=== PATIENT | male | born 1955 | race African-American/Black ===

== ENCOUNTER 2024-12-11 11:56 | Outpatient (CLI) | payer MEDICARE, MEDICAID, SELFPAY ==
--- OUTSIDE RECORDS SUMMARY | 2024-12-11 12:25 | XMS_ITS | Encounter Summary ---
Author Organization [facility] Address [address] [place] [address] Phone Care Team Providers Care Analyst Competitive Intelligence Name Role Phone Luisana Carlos Maureen PAC Unavailable Vicki Riggins PAC Primary Care Provider + Encounter Details Date Type Department Care Team (Late st Contact Info) Description 11/25/2024 Telephone [facility] [address] [place] [address] Triston Storey, FILM PAINTER, COMMUNITY RELATIONS DIRECTOR [address] [address] Social History Tobacco Use Types Packs/Day Years Used Date Smoking Tobacco: Former Cigarettes 0.3 1 1 05/13/1995 - 03/13/1997 Smokeless Tobacco: Never Alcohol Use Standard Drinks/Week Comments No 0 (1 standard drink = 0.6 oz pur e alcohol) PHQ-2 Answer Date Recorded Total Score - Questions 1-9 0 01/2025 Sex and Gender Information Value Date Recorded Sex Assigned at Male 12/30/2016 3:45 PM CDT Legal Sex Male 3:17 AM EXECUTIVE DIRECTOR Gender Identity Male 12/30/2016 3:45 PM CDT Sexual Orientation Straight 12/30/2016 3: 45 PM CDT documented as of this encounter Miscellaneous Notes * Telephone Encounter - Ani Espitia RN - 11/25/2024 9:37 AM CDT S: Received fax for pre-surgical eval from [facility] B: JARROD 09/10/24 3. Erectile dysfunction, unspecified erectile dysfunction type Quadmix 30 units with good effect Expensive and does not like injecting Asking about IPP. Discussed, including risks, things some do not like about it Referral made to Dr Soto [facility] - EXTERNAL UROLOGY REFERRAL; Future A: Presurgical eval form for Tito to fill out and sign R: Form placed in Tito's folder to review and signature Will need to be return faxed to [phone] documented in this encounter Plan of Treatment Upcoming Encounters Date Type Department Care Team (Late st Contact Info) Description 03/25/2025 11:30 AM EXECUTIVE DIRECTOR Office Visit [facility] [address] [place] [address] Triston Storey, FILM PAINTER, COMMUNITY RELATIONS DIRECTOR [address] [address] 03/25/2025 3:00 PM EXECUTIVE DIRECTOR Office Visit [facility] [address] [place] [phone] Devyn Cardenas, FILM PAINTER, CHICKEN STUFFER [address] [place] [address] Discharge Disposition: Discharged to home or Selfcare 04/15/2025 9:00 AM EXECUTIVE DIRECTOR Office Visit [facility] [address] [place] [address] Vicki Riggins PAC [address] [place] [address] documented as of this encounter Visit Diagnoses Not on filedocumented in this encounter Additional Health Concerns Assessment Noted Time PHQ-9 Depression Total Score: 0 10/15/19 8:00 AM CDT documented as of this encounter Care Teams Analyst Competitive Intelligence Relationship Specialty Start Date End Date Vicki Riggins PAC [address] [place] [address] PCP - General Physician Title I Assistant 07/06/22 Luisana Carlos, [facility] [address] [place] [address] Physician Title I Assistant Gastroenterology 10/08/19 documented as of this encounter
--- OUTSIDE RECORDS SUMMARY | 2024-12-11 12:25 | XMS_ITS ---
Author Organization [facility] Address [address] [place] [address] Phone Care Team Providers Care Viticulture Teacher Name Role Phone PoLuisana gonzalez Zara PAC Unavailable Vicki Riggins PAC Primary Care Provider + Mike Chronic Condition Monitoring Status:Enrolled (Active) Start date:04/19/2023 Enrollment date:04/20/2023 Current support & services provided:Diabetes Management, Hypertension Management Related social drivers of health:Intimate Partner Violence, Social Connections, Alcohol Use, Tobacco Use, Financial Resource Strain,Depression, Stress, Physical Activity, Food Insecurity, Transportation Needs, Housing Stability, Utilities Continued Care and Services Coordination
--- OUTSIDE RECORDS SUMMARY | 2024-12-11 12:25 | XMS_ITS | Encounter Summary ---
Author Organization [facility] Address [address] [place] [address] Phone Care Team Providers Care Fire Chief Deputy Name Role Phone Luisana Carlos Maureen PAC Unavailable Vicki Riggins PAC Primary Care Provider + Encounter Details Date Type Department Care Team (Late st Contact Info) Description 04/07/2023 Telephone [facility] [address] [place] [address] Triston Storey, SUPPLY AND DISTRIBUTION MANAGER, DEVELOPMENTAL MATHEMATICS INSTRUCTOR [address] [address] Social History Tobacco Use Types Packs/Day Years Used Date Smoking Tobacco: Former Cigarettes 0.3 1 1 05/13/1995 - 03/13/1997 Smokeless Tobacco: Never Alcohol Use Standard Drinks/Week Comments No 0 (1 standard drink = 0.6 oz pur e alcohol) PHQ-2 Answer Date Recorded Total Score - Questions 1-9 0 05/2022 Sex and Gender Information Value Date Recorded Sex Assigned at Male 12/30/2016 3:45 PM CDT Legal Sex Male 3:17 AM LOAN SPECIALIST Gender Identity Male 12/30/2016 3:45 PM CDT Sexual Orientation Straight 12/30/2016 3: 45 PM CDT COVID-19 Exposure Response Date Recorded In the last 10 days, have yo u been in contact with someone who was confirmed or suspected to have Coronavirus/COVID-19? No / Unsure 03/08/2023 10:14 AM CDT documented as of this encounter Miscellaneous Notes * Telephone Encounter - Maribel Ricardo - 05/17/2023 9:46 AM CST No PA required for Terazosin 2 mg caps SPECIALIST * Telephone Encounter - Maribel Ricardo - 04/07/2023 3:44 PM CST PA for Terazosin 2 mg caps has been initiated through [facility] Sánchez: [id number] SPECIALIST documented in this encounter Plan of Treatment Upcoming Encounters Date Type Department Care Team (Late st Contact Info) Description 03/25/2025 11:30 AM LOAN SPECIALIST Office Visit [facility] [address] [place] [address] Triston Storey, SUPPLY AND DISTRIBUTION MANAGER, DEVELOPMENTAL MATHEMATICS INSTRUCTOR [address] [address] 03/25/2025 3:00 PM LOAN SPECIALIST Office Visit [facility] [address] [place] [address] Devyn Cardenas, SUPPLY AND DISTRIBUTION MANAGER, OIL PIPELINE DISPATCHER [address] [place] [address] Discharge Disposition: Discharged to home or Selfcare 04/15/2025 9:00 AM LOAN SPECIALIST Office Visit [facility] [address] [place] [phone] Vicki Riggins, [facility] [address] [place] [address] documented as of this encounter Visit Diagnoses Not on filedocumented in this encounter Additional Health Concerns Assessment Noted Time PHQ-9 Depression Total Score: 0 03/08/20 23 10:00 AM CDT documented as of this encounter Care Teams Fire Chief Deputy Relationship Specialty Start Date End Date Vicki Riggins, PAC [address] [place] [phone] PCP - General Physician Director Of Mechanical Engineering 07/06/22 Luisana Carlos, KRISTOPHER [address] [place] [address] Physician Director Of Mechanical Engineering Gastroenterology 10/08/19 documented as of this encounter
--- OUTSIDE RECORDS SUMMARY | 2024-12-11 12:25 | XMS_ITS | Encounter Summary ---
Author Organization [facility] Address [address] [place] [address] Phone Care Team Providers Care Children'S Lunchroom Supervisor Name Role Phone Luisana Carlos PAC Unavailable [phone] Vicki Riggins PAC Primary Care Provider + Encounter Details Date Type Department Care Team (Late st Contact Info) Description 10/14/2024 Results Follow-Up [facility] [address] [place] [address] Vicki Riggins, PAC [address] [place] [address] LIPID PANEL, THYROID STIMULATING HORMONE (TSH), HEMOGLOBIN A1C W/ ESTIMATED GLUCOSE Social History Tobacco Use Types Packs/Day Years [...] PM CDT Legal Sex Male 3:17 AM REGISTERED NURSE RENAL Gender Identity Male 12/30/2016 3:45 PM CDT Sexual Orientation Straight 12/30/2016 3: 45 PM CDT documented as of this encounter Functional Status * Question Answer Date of Assessment Author Little interest or pleasure in doing things Not at all 10/14/2024 8:00 AM CDFadia Haywood CM A Feeling down, depressed, or hopeless Not at all 10/14/2024 8:00 AM CDT Fadia Sow CM A * Over the past 2 weeks, how often have you been bothered by any of the following problems? Question Answer Date of Assessment Author Patient Health Questionnaire-2 Score 0 01/2025 8:00 AM CDFadia Haywood CMA * Over the last 2 weeks, how often have you been bothered by any of the following problems? Question Answer Date of Assessment Author Feeling nervous, anxious, or on edge 0 10/14/2024 8:00 AM CDT Fadia Sow CM A Not being able to stop or co ntrol worrying 0 10/14/2024 8:00 AM CDT Fadia Swo CM A Worrying too much about diff erent things 0 10/14/2024 8:00 AM CDFadia Haywood CM A Trouble relaxing 0 10/14/2024 8:00 AM CDFadia Haywood CMA Being so restless that it is hard to sit still 0 10/14/2024 8:00 AM CDFadia Haywood CM A Becoming easily annoyed or irritable 0 10/14/2024 8:00 AM CDT Fadia Sow CM A Feeling afraid as if somethi ng awful might happen 0 10/14/2024 8:00 AM Fadia Espinoza CM A MANUEL-7 Total Score 0 10/14/2024 8:00 AM CDFadia Haywood CMA documented as of this encounter Plan of Treatment Upcoming Encounters Date Type Department Care Team (Late st Contact Info) Description 03/25/2025 11:30 AM REGISTERED NURSE RENAL Office Visit [facility] [address] [place] [address] Triston Storey, PRACTICE PERFORMANCE MANAGER, BUSINESS SERVICES SALES AGENT [address] [address] 03/25/2025 3:00 PM REGISTERED NURSE RENAL Office Visit [facility] [address] [place] [address] Devyn Cardenas, PRACTICE PERFORMANCE MANAGER, LEATHER BELT SHAPER [address] [place] [address] Discharge Disposition: Discharged to home or Selfcare 04/15/2025 9:00 AM REGISTERED NURSE RENAL Office Visit [facility] [address] [place] [address] Vicki Riggins, KRISTOPHER [address] [place] [address] documented as of this encounter Visit Diagnoses Not on filedocumented in this encounter Additional Health Concerns Assessment Noted Time PHQ-9 Depression Total Score: 0 10/15/19 25 8:00 AM CDT documented as of this encounter Care Teams Children'S Lunchroom Supervisor Relationship Specialty Start Date End Date Vicki Riggins PAC [address] [place] [address] PCP - General Physician Valving Machine Operator 07/06/22 Luisana Carlos PAC [address] [place], [place] [id number] Physician Valving Machine Operator Gastroenterology 10/08/19 documented as of this encounter
--- OUTSIDE RECORDS SUMMARY | 2024-12-11 12:25 | XMS_ITS | Clinical Summary ---
Author Organization [facility] Address [address] [place] [address] Phone Care Team Providers Care Juke Box Servicer Name Role Phone Luisana Carlos PAC Unavailable Vicki Riggins PAC Primary Care Provider + Allergies Active Allergy Reactions Criticality Noted Date Comments Other Other (see Comments) Wfrgnxe-TLZ-VGR reductase inhibitors. Reaction: rhabdomyositis - Patients Denies Unaware of this Medications Glucose Blood StripIndications :Type 2 diabetes mellitus without complication, without long-term current use of insulin 1 Strip by Does not apply route daily. 100 Strip 3 10/19/19 17 Active naproxen (NAPROSYN) 500 MG TabletIndication s:Low back pain of over 3 months duration Take 1 Tablet by mouth 2 times daily (with meals). 60 Tablet 5 01/09/20 21 Active Additional Information Patient not taking.Reported on 10/14/2024 latanoprost (XALATAN) 0.005 % Solution 02/12/20 23 Active COMPOUNDED MEDICATION Quad Mix for ICI Papaverine 30 mg/mL Phentolamine 4 mg/mL Prostaglandin E 40 mcg/mL Atropine 160 mcg/mL Start with 10 units (0.1 mL) daily as needed. Can increase by 10 units (0.1 mL) each dose to a maximum of 100 units (1mL). 5 mL 06/04/19 25 Active Insulin Syringe-Needle U-100 (INSULIN SYRINGE 1CC/31G) 31G X 09/20 1 ML Misc For penile injections daily as needed 100 Each 1 06/05/19 25 Active testosterone enanthate 200 MG/ML SolutionIndicati ons:Primary male hypogonadism 0.5 mL by Intramuscular route once a week. 5 mL 3 09/11/19 25 Active terazosin (HYTRIN) 5 MG Capsule Take 1 Capsule by mouth nightly. 90 Capsule 3 09/11/19 25 Active SYRINGE-NEEDLE, DISP, 3 ML (BD Luer-Lock Syringe) 18G X 1-1/2 3 ML Misc 1 Each by Does not apply route once a week. 12 Each 2 09/11/19 25 Active NEEDLE, DISP, 25 G (BD Disp [place]) 25G X 5/8 Misc 1 Each by Does not apply route once a week. 12 Each 3 09/11/19 25 Active lisinopril (PRINIVIL, ZESTRIL) 20 MG TabletIndication s:Primary hypertension Take 1 Tablet by mouth daily. 90 Tablet 1 10/15/19 25 Active metFORMIN (GLUCOPHAGE) 500 MG TabletIndication s:Type 2 diabetes mellitus with hyperglycemia, without long-term current use of insulin (HCC) Take 2 Tablets by mouth 2 times daily (with meals). 360 Tablet 1 10/15/19 25 Active Active Problems Problem Noted Date Diagnosed Date Herpes simplex virus (HSV) infection 03/08/2023 Type 2 diabetes mellitus 02/28/2018 Screen for colon cancer 03/14/2017 Overview (03/15/2017): Screen for colon cancer; Negative family history for colon cancer in first degree relatives under age 60 years. 03-15-17; 61 year old man for initial screening colonoscopy; fair prep liquid resolved with irrigation, 6 mm descending colon polyp CS, hemorrhoids (pathology; ) Three to five year interval recommended (prep issues) High blood pressure 12/30/2016 Hyperlipidemia 10/25/2011 Obesity Erectile dysfunction Resolved Problems Problem Noted Date Diagnosed Date Resolved Date Hypotension 10/25/2011 06/27/2016 Rhabdomyolysis 10/25/2011 06/27/2016 Fever 10/25/2011 10/26/2011 Hyperglycemia 06/27/2016 Encounters Date Type Department Care Team Description 11/25/2024 Telephone [facility] [address] [place] [address] Triston Storey, RECORD PRESS OPERATOR, DAIRY STORE MANAGER 11/19/2024 Telephone [facility] [address] [place] [address] NurseShyann Gastro, security guard dispatcher (Error in referral needs [place]) 11/12/2024 Telephone [facility] [address] [place] [address] NurseShyann Urology, RN Colonoscopy (Screening questions completed) 10/14/2024 9:10 AM CDT [facility] [address] [place] [address] Vicki Riggins PAC Primary hypertension; Type 2 diabetes mellitus with hyperglycemia, without long-term current use of insulin (HCC) Discharge Disposition: Discharged to home or Selfcare 10/14/2024 9:00 AM CDT Office Visit [address] [address] Vicki Riggins PAC Primary hypertension (Primary Dx); Type 2 diabetes mellitus with hyperglycemia, without long-term current use of insulin (HCC); Polyp of colon, unspecified part of colon, unspecified type; BMI 37.0-37.9, adult 10/14/2024 Results Follow-Up [address] [phone] Vicki Riggins PAC LIPID PANEL, THYROID STIMULATING HORMONE (TSH), HEMOGLOBIN A1C W/ ESTIMATED GLUCOSE 10/14/2024 Travel 09/10/2024 10:00 AM CDT Office Visit [facility] [address] [place] [address] Triston Storey APRN, DAIRY STORE MANAGER Primary male hypogonadism (Primary Dx); BPH with obstruction/lower urinary tract symptoms; Erectile dysfunction, unspecified erectile dysfunction type; Nocturia Discharge Disposition: Discharged to home or Selfcare from Last 3 Months Immunizations Immunization Administration Dates Next Due COVID-19, MRNA, LNP-S, BIVAL ENT , MODERNA, 50 MCG/0.5 ML (12+) 04/28/2022 Covid-19, Mrna, Lnp-s, PF, 1 00 mcg/0.5 mL Dose (Moderna) 08/18/2020,07/17/2020 Influenza Vaccine, Quadrivalent, PF 02/06/2020 Influenza, Injectable, Quadrivalent 02/28/2018 Influenza, Quadrivalent, Adjuvanted 02/15/2023,1 06/29/2021 Influenza, high-dose, trivalent, PF 01/15/2024 Family History Medical History Relation Name Comments Hypertension Mother Relation Name Status Comments Father Alive Mother Social History Tobacco Use Types Packs/Day Years Used Date Smoking Tobacco: Former Cigarettes 0.3 1 1 05/13/1995 - 03/13/1997 Smokeless Tobacco: Never Tobacco Cessation:Counseling Given: No Alcohol Use Standard Drinks/Week Comments No 0 (1 standard drink = 0.6 oz pur e alcohol) PHQ-2 Answer Date Recorded Total Score - Questions 1-9 0 /01/2025 Sex and Gender Information Value Date Recorded Sex Assigned at Male 12/30/2016 3:45 PM CDT Legal Sex Male 3:17 AM SIZER MACHINE Gender Identity Male 12/30/2016 3:45 PM CDT Sexual Orientation Straight 12/30/2016 3: 45 PM CDT Last Filed Vital Signs Vital Sign Reading Time Taken Comments Blood Pressure 146/84 10/14/2024 8:48 AM CDT Pulse 84 10/14/2024 8:48 AM CDT Temperature 36.8 C (98.3 F) 10/14/2024 8:48 AM CDT Respiratory Rate 18 10/14/2024 8:48 AM CDT Oxygen Saturation 99% 10/14/2024 8:48 AM CDT Inhaled Oxygen Concentration - - Weight 132 kg (291 lb) 10/14/2024 8:48 AM CDT Height 188 cm (6' 2) 10/14/2024 8:48 AM CDT Body Mass Index 37.36 10/14/2024 8:48 AM CDT Plan of Treatment Upcoming Encounters Date Type Department Care Team (Late st Contact Info) Description 03/25/2025 11:30 AM SIZER MACHINE Office Visit [facility] [address] [place] [address] Triston Storey, RECORD PRESS OPERATOR, DAIRY STORE MANAGER [address] [address] 03/25/2025 3:00 PM SIZER MACHINE Office Visit [facility] [address] [place] [phone] Devyn Cardenas, RECORD PRESS OPERATOR, EDGING MACHINE FEEDER [address] [place] [address] Discharge Disposition: Discharged to home or Selfcare 04/15/2025 9:00 AM SIZER MACHINE [facility] [address] [place] [address] Vicki Riggins, [facility] [address] [place] [address] Health Maintenance Due Date Last Done Comments Diabetes: Foot Exam 1955 Hepatitis C Virus (HCV) Screening 1955 TdaP Immunization 1955 Pneumococcal Immunization (50+ years) (1 of 2 - PCV) 12/26/1975 Cologuard 2001 Zoster Immunization (1 of 2) 2006 Respiratory Syncytial Virus (RSV) Immunization (Adult) (1 - Risk 60-74 years 1-dose series) 2016 Immunochemical Fecal Occult Blood 07/21/2020 07/22/2019 AAA Screening Ultrasound 2021 SARS-COV-2 Immunization ( season) 2024 04/13/2023, 04/28/2022, 04/28/2022, Additional history exists Colonoscopy 10/20/2024 10/21/2019, 12/2016, 03/15/2017 Colorectal Cancer Screening 10/20/2024 Influenza Immunization (#1) 01/06/202501/2024, 02/15/2023, 04/28/2022, Additional history exists Diabetes: Eye Exam 01/31/2025 02/01/2024, 06/19/2018 Diabetes: Hemoglobin A1c 04/15/2025 025, 04/15/2024, 02/01/2024, Additional history exists Diabetes: Nephropathy Screening 09/09/2025 09/09/2024, 09/19/2023, 06/16/2022, Additional history exists PSA Discussion Completed 09/09/2024, 02/05, 01/03/2022, Additional history exists Hepatitis B Immunization Aged Out No longer eligible based on patient's age to complete this topic Human Papillomavirus (HPV) Immunization Aged Out No longer eligible based on patient's age to complete this topic Meningococcal Immunization (ACWY) Aged Out No longer eligible based on patient's age to complete this topic Rotavirus Immunization Aged Out No lo nger eligible based on patient's age to complete this topic Procedures Procedure Name Priority Date/Time Associated Diagnosis Comments HEMOGLOBIN A1C W/ ESTIMATED GLUCOSE Routine 10/14/2024 9:11 AM CDT Primary hypertension Type 2 diabetes mellitus with hyperglycemia, without long-term current use of insulin (HCC) THYROID STIMULATING HORMONE (TSH) Routine 10/14/2024 9:11 AM CDT Primary hypertension Type 2 diabetes mellitus with hyperglycemia, without long-term current use of insulin (HCC) LIPID PANEL Routine 10/14/2024 9:11 AM CDT Primary hypertension Type 2 diabetes mellitus with hyperglycemia, without long-term current use of insulin (HCC) CMP (COMPREHENSIVE METABOLIC PANEL) Routine 09/09/2024 11:12 AM CDT Primary male hypogonadism PSA DIAGNOSTIC,TOTAL Routine 09/09/2024 11:12 AM CDT BPH with obstruction/lower urinary tract symptoms STOOL, OCCULT BLOOD IMMUNOASSAY (IFOB) Routine 07/22/2019 7:30 AM CDT Special screening for malignant neoplasm of colon from Last 3 Months or Most Recently Relevant to Health Maintenance Results * (ABNORMAL) HEMOGLOBIN A1C W/ ESTIMATED GLUCOSE (10/14/2024 9:11 AM CDT) HGB-A1C 6.8(H) 4.0 - 6.0 % 10/14/2024 3:20 PM CDT [facility] Est Average Glucose 148.5 mg/dL 10/14/2024 3:20 PM CDT [facility] Blood Venipuncture / Unknown 10/14/2024 9:11 AM CDT 10/14/2024 9:18 AM CDT Narrative [facility] - 10/14/2024 3:20 PM CDT Specimens containing greater than 5% of Hemoglobin F may result in lower than expected % HbA1c results. [employer] PAC CHEMISTRY ORDERABLES Fin al Result Performing Organization Address City/[facility]/ZIP Co de Phone Number [facility] [address] [place] [address], [place] * THYROID STIMULATING HORMONE (TSH) (10/14/2024 9:11 AM CDT) TSH 1.510 0.300 - 5.000 mIU/L 10/14/2024 3:12 PM CDT [facility] Blood Venipuncture / Unknown 10/14/2024 9:11 AM CDT 10/14/2024 9:[address] [facility] CHEMISTRY ORDERAB[facility] Fin al Result Performing Organization Address City/[facility] Co de Phone Number [facility] [address] [place] [address], [place] * (ABNORMAL) LIPID PANEL (10/14/2024 9:11 AM CDT) CHOLESTEROL 189 <200 mg/dL 10/14/2024 2:54 PM CDT [facility] TRIGLYCERIDES 130 <150 mg/dL 10/14/2024 2:54 PM CDT [facility] HDL CHOLESTEROL 43 >40 mg/dL 2:54 PM CDT [facility] LDL 120 <130 mg/dL 10/14/2024 2:54 PM CDT [facility] VLDL 26 10 - 50 mg/dL 10/14/2024 2:54 PM CDT [facility] CHOL/HDL RATIO 4.4 0.0 - 4.4 10/14/2024 2:54 PM CDT [facility] NON-HDL CHOLESTEROL 146(H) <130 mg/dL 10/14/2024 2:54 PM CDT [facility] IS THE PATIENT REQUIRED TO BE FASTING? No 10/14/2024 2:54 PM CDT [facility] Blood Venipuncture / Unknown 10/14/2024 9:11 AM CDT 10/14/2024 9:18 AM CDT Narrative [facility] - 10/14/2024 2:54 PM CDT NCEP GUIDELINES FOR LIPID INTERPRETATION TOTAL CHOLESTEROL DESIRABLE <200 BORDERLINE 200-239 HIGH >=240 LDL CHOLESTEROL OPTIMAL <100 NEAR OPTIMAL 100-129 BORDERLINE 130-159 HIGH 160-189 VERY HIGH >=190 HDL CHOLESTEROL LOW <40 *HIGH >=60 TRIGLYCERIDES NORMAL <150 BORDERLINE 150-199 HIGH 200-499 VERY HIGH >=500 *HDL CHOLESTEROL >=60 mg/dL counts as a negative risk factor; its presence removes one risk factor from the total. Based on guidelines from the National Cholesterol Education Program, desirable levels for non HDL cholesterol are 30 mg/dL above target levels for LDL cholesterol. Vicki Riggins PAC CHEMISTRY ORDERABLES Fin al Result [facility] [address] [place] [address], * PSA DIAGNOSTIC,TOTAL (09/09/2024 11:12 AM CDT) PSA, TOTAL (PROSTATIC SPECIFIC ANTIGEN) 0.49 <4.00 ng/mL 09/09/2024 4:26 PM CDT [facility] Blood Venipuncture / Unknown 09/09/2024 11:12 AM CDT 09/09/2024 11:12 AM CDT Narrative [facility] - 09/09/2024 4:26 PM CDT The ALINITY Total PSA assay is a Chemiluminescent Microparticle Immunoassay (CMIA) for the quantitative determination of total PSA (both free PSA and PSA complexed to [id number]) in human serum. Total PSA values obtained with different assay methods, including Yancey PSA assays, cannot be used interchangeably. us Triston Storey APRN, DAIRY STORE MANAGER CHEMISTRY ORDERABLES F inal Result [facility] [address] [place] [address], * (ABNORMAL) CMP (COMPREHENSIVE METABOLIC PANEL) (09/09/2024 11:12 AM CDT) SODIUM 141 136 - 145 mmol/L 09/09/2024 3:44 PM CDT [facility] POTASSIUM 4.1 3.5 - 5.1 mmol/L 09/09/2024 3:44 PM CDT [facility] CHLORIDE 107 98 - 107 mmol/L 09/09/2024 3:44 PM CDT [facility] CO2, VENOUS 27 22 - 30 mmol/L 09/09/2024 3:44 PM CDT [facility] ANION GAP 7.0 <18.0 mmol/L 09/09/2024 3:44 PM CDT [facility] GLUCOSE 146(H) 70 - 99 mg/dL 09/09/2024 3:44 PM CDT [facility] BUN 9 8 - 26 mg/dL 09/09/2024 3:44 PM CDT [facility] CREATININE, BLOOD 0.80 0.70 - 1.30 mg/dL 09/09/2024 3:44 PM CDT [facility] BUN/CREATININE RATIO 11(L) 12 - 20 ratio 09/09/2024 3:44 PM CDT [facility] TOTAL PROTEIN 6.7 6.0 - 8.0 g/dL 09/09/2024 3:44 PM CDT [facility] ALBUMIN 3.9 3.5 - 5.0 g/dL 09/09/2024 3:44 PM CDT [facility] A/G RATIO 1.4 1.0 - 2.2 09/09/2024 3:44 PM CDT [facility] CALCIUM 8.6(L) 8.7 - 10.5 mg/dL 09/09/2024 3:44 PM CDT [facility] T BILI 0.6 0.2 - 1.2 mg/dL 09/09/2024 3:44 PM CDT [facility] SGOT (AST) 35 <43 U/L 09/09/2024 3:44 PM CDT [facility] SGPT (ALT) 43 <56 U/L 09/09/2024 3:44 PM CDT [facility] ALKALINE PHOSPHATASE 79 40 - 150 U/L 09/09/2024 3:44 PM CDT [facility] IS THE PATIENT REQUIRED TO BE FASTING? No 09/09/2024 3:44 PM CDT [facility] GFR, ESTIMATED >60 >=60 09/09/2024 3:44 PM CDT [facility] Comment: Creatinine Clearance is the preferred criteria for selecting drug dose adjustments in renally impaired patients. The GFR is provided as additional pertinent clinical information. GFR is reported in mL/min/1.73 sq m. Calculation based on the Chronic Kidney Disease Epidemiology Collaboration (CKD- EPI) equation refit without adjustment for race. GFR, EST. >60 >=60 025 3:44 PM CDT [facility] GFR, EST. NONAFRICAN >60 >=60 09/09/2024 3:44 PM CDT [facility] Blood Venipuncture / Unknown 09/09/2024 11:12 AM CDT 09/09/2024 11:12 AM CDT us Triston Storey RECORD PRESS OPERATOR, DAIRY STORE MANAGER CHEMISTRY ORDERABLES F inal Result [facility] [address] [place] [address], * (ABNORMAL) STOOL, OCCULT BLOOD IMMUNOASSAY (IFOB) (07/22/2019 7:30 AM CDT) OCCULT BLOOD - IFOB Positive(A ) Negative 07/22/2019 12:41 PM CDT [facility] Specimen of unknown material (specimen) STOOL SPECIMEN / Unknown Non-Phlebotomy Collection / Unknown 07/22/2019 7:30 AM CDT 07/22/2019 9:40 AM CDT us Dimitri Bardales MD BODY FLUIDS & STOOLS ORDERABL ES Final Result [facility] [address] [place] [address], [place] from Last 3 Months or Most Recently Relevant to Health Maintenance Insurance [place] Advance Directives * Full Code (Latest Code Status on File) Date Activated Date Inactivated Comments 10/25/2011 9:14 PM 10/28/2011 3:12 PM Care Teams Juke Box Servicer Relationship Specialty Start Date End Date Vicki Riggins PAC [address] [place] [phone] PCP - General Physician Fish Processor 07/06/22 Luisana Carlos PAC [address] [place] [address] Physician Fish Processor Gastroenterology 10/08/19
--- OUTSIDE RECORDS SUMMARY | 2024-12-11 12:25 | XMS_ITS | Encounter Summary ---
Author Organization [facility] Address [address] [place] [address] Phone Care Team Providers Care Client Executive Name Role Phone Dimitri Bardales MD Primary Care Provider Luisana Carlos PAC Unavailable [phone] Aurea Polanco MD Primary Care Provider [phone] Vicki Riggins PAC Primary Care Provider + Reason for Visit * Reason Comments Medication Refill Encounter Details Date Type Department Care Team (Late st Contact Info) Description 11/03/2020 Refill [facility] [address] [place] [address] Dimitri Bardales MD [address] [place] [address] Medication Refill Social History Tobacco Use Types Packs/Day Years Used Date Smoking Tobacco: Former Cigarettes 0.3 1 1 05/13/1995 - 03/13/1997 Smokeless Tobacco: Never Alcohol Use Standard Drinks/Week Comments No 0 (1 standard drink = 0.6 oz pur e alcohol) PHQ-2 Answer Date Recorded Total Score - Questions 1-9 0 07/2020 Sex and Gender Information Value Date Recorded Sex Assigned at Male 12/30/2016 3:45 PM CDT Legal Sex Male 3:17 AM ROBOTICS MECHANIC Gender Identity Male 12/30/2016 3:45 PM CDT Sexual Orientation Straight 12/30/2016 3: 45 PM CDT documented as of this encounter Miscellaneous Notes * Telephone Encounter - Marilia Queen CMA - 11/03/2020 8:24 AM CDT Last appt: 09/07/20 Last refill: 07/17/19 Next appt: 01/08/2021 Sending to provider for review and advice Requested Prescriptions Pending Prescriptions Disp Refills ??? atorvastatin (LIPITOR) 20 MG Tablet [Pharmacy Med Name: ATORVASTATIN 20 MG TABLET] 30 Tablet 10 Sig: TAKE ONE TABLET BY MOUTH DAILY ??? lisinopril (PRINIVIL, ZESTRIL) 20 MG Tablet [Pharmacy Med Name: LISINOPRIL 20 MG TABLET] 30 Tablet 10 Sig: TAKE ONE TABLET BY MOUTH DAILY documented in this encounter Plan of Treatment Upcoming Encounters Date Type Department Care Team (Late st Contact Info) Description 03/25/2025 11:30 AM ROBOTICS MECHANIC Office Visit [facility] [address] [place] [address] Triston Storey, INFORMATION SECURITY DIRECTOR, SINGLE FOLD MACHINE OPERATOR [address] [address] 03/25/2025 3:00 PM ROBOTICS MECHANIC Office Visit [facility] [address] [place] [phone] Devyn Cardenas, INFORMATION SECURITY DIRECTOR, PHOTOGRAPHIC INTELLIGENCE OFFICER [address] [place] [address] Discharge Disposition: Discharged to home or Selfcare 04/15/2025 9:00 AM ROBOTICS MECHANIC Office Visit [facility] [address] [place] [address] Vicki Riggins, [facility] [address] [place] [phone] documented as of this encounter Visit Diagnoses Diagnosis Mixed hyperlipidemia Essential hypertension Unspecified essential hypertension documented in this encounter Additional Health Concerns Assessment Noted Time PHQ-9 Depression Total Score: 0 09/08/19 21 3:00 PM CDT documented as of this encounter Care Teams Client Executive Relationship Specialty Start Date End Date Dimitri Bardales MD [address] [place], [place] [phone] PCP - General Family Medicine 02/28/18 05/24/22 Aurea Polanco MD [address] [place] [address] PCP - General Family Medicine 05/25/22 07/05/22 Vicki Riggins, [facility] [address] [place] [phone] PCP - General Physician Extrusion Bender 07/06/22 Luisana Carlos, PAC [address] [place] [address] Physician Extrusion Bender Gastroenterology 10/08/19 documented as of this encounter
--- OUTSIDE RECORDS SUMMARY | 2024-12-11 12:26 | XMS_ITS | Encounter Summary ---
Author Organization [facility] Address [address] [place] [address] Phone Care Team Providers Care Skirt Clipper Name Role Phone Dimitri Bardales MD Primary Care Provider Luisana Carlos PAC Unavailable [phone] Aurea Polanco MD Primary Care Provider Vicki Riggins PAC Primary Care Provider + Reason for Visit * Reason Comments Medication Refill Encounter Details Date Type Department Care Team (Late st Contact Info) Description 06/29/2020 Refill [facility] [address] [place] [address] Dimitri Bardales MD [address] [place] [address] Medication Refill Social History Tobacco Use Types Packs/Day Years Used Date Smoking Tobacco: Former Cigarettes 0.3 1 1 05/13/1995 - 03/13/1997 Smokeless Tobacco: Never Alcohol Use Standard Drinks/Week Comments No 0 (1 standard drink = 0.6 oz pur e alcohol) PHQ-2 Answer Date Recorded Total Score - Questions 1-9 0 08/2020 Sex and Gender Information Value Date Recorded Sex Assigned at Male 12/30/2016 3:45 PM CDT Legal Sex Male 3:17 AM FUR BLOWER OPERATOR Gender Identity Male 12/30/2016 3:45 PM CDT Sexual Orientation Straight 12/30/2016 3: 45 PM CDT documented as of this encounter Miscellaneous Notes * Telephone Encounter - Marilia Queen CMA - 06/30/2020 2:05 PM CST Refusing due to this being d/c by Dr. Bardales on 12/31/2018 for reorder. BLOWER OPERATOR documented in this encounter Plan of Treatment Upcoming Encounters Date Type Department Care Team (Late st Contact Info) Description 03/25/2025 11:30 AM FUR BLOWER OPERATOR Office Visit [facility] [address] [place] [address] Triston Storey, HOTEL ASSOCIATE, CAR WHACKER [address] [address] 03/25/2025 3:00 PM FUR BLOWER OPERATOR Office Visit [facility] [address] [place] [phone] Devyn Cardenas, HOTEL ASSOCIATE, COMPLIANCE INTERN [address] [place] [address] Discharge Disposition: Discharged to home or Selfcare 04/15/2025 9:00 AM FUR BLOWER OPERATOR Office Visit [facility] [address] [place] [phone] Vicki Riggins, PAC [address] [place] [phone] documented as of this encounter Visit Diagnoses Diagnosis Erectile dysfunction, unspecified erectile dysfunction type documented in this encounter Additional Health Concerns Assessment Noted Time PHQ-9 Depression Total Score: 0 05/11/19 21 4:00 PM FUR BLOWER OPERATOR documented as of this encounter Care Teams Skirt Clipper Relationship Specialty Start Date End Date Dimitri Bardales MD [address] [place] [phone] PCP - General Family Medicine 02/28/18 05/24/22 Aurea Polanco MD [address] [place], [place] [phone] PCP - General Family Medicine 05/25/22 07/05/22 Vicki Riggins, PAC [address] [place] [phone] PCP - General Physician Utilities Equipment Repairer 07/06/22 Luisana Carlos, [facility] [address] [place] [address] Physician Utilities Equipment Repairer Gastroenterology 10/08/19 documented as of this encounter
--- OUTSIDE RECORDS SUMMARY | 2024-12-11 12:26 | XMS_ITS | Encounter Summary ---
Author Organization [facility] Address [address] [place] [address] Phone Care Team Providers Care Prn Physical Therapist Name Role Phone Dimitri Bardales MD Primary Care Provider Luisana Carlos PAC Unavailable Aurea Polanco MD Primary Care Provider Vicki Riggins PAC Primary Care Provider + Reason for Visit * Reason Comments Medication Refill Encounter Details Date Type Department Care Team (Late st Contact Info) Description 07/02/2020 Refill [facility] [address] [place] [address] Dimitri Bardales MD [address] [place] [address] Medication Refill Social History Tobacco [...] PM CDT Legal Sex Male 3:17 AM RUBBER COMPOUNDER SUPERVISOR Gender Identity Male 12/30/2016 3:45 PM CDT Sexual Orientation Straight 12/30/2016 3: 45 PM CDT documented as of this encounter Miscellaneous Notes * Telephone Encounter - Marilia Queen CMA - 07/03/2020 11:52 AM CST Refusing as it was d/c on 12/31/[address] Bardales ER COMPOUNDER SUPERVISOR documented in this encounter Plan of Treatment Upcoming Encounters Date Type Department Care Team (Late st Contact Info) Description 03/25/2025 11:30 AM RUBBER COMPOUNDER SUPERVISOR Office Visit [facility] [address] [place] [address] Triston Storey, FIELD REIMBURSEMENT MANAGER, CLUBHOUSE ATTENDANT [address] [address] 03/25/2025 3:00 PM RUBBER COMPOUNDER SUPERVISOR Office Visit [facility] [address] [place] [phone] Devyn Cardenas, FIELD REIMBURSEMENT MANAGER, FIELD SERVICE TECHNICIAN [employer] [address] [place] [address] Discharge Disposition: Discharged to home or Selfcare 04/15/2025 9:00 AM RUBBER COMPOUNDER SUPERVISOR Office Visit [facility] [address] [place] [phone] Vicki Riggins, MERGED WITH [facility] [address] [place] [phone] documented as of this encounter Visit Diagnoses Diagnosis Erectile dysfunction, unspecified erectile dysfunction type documented in this encounter Additional Health Concerns Assessment Noted Time PHQ-9 Depression Total Score: 0 05/11/19 21 4:00 PM RUBBER COMPOUNDER SUPERVISOR documented as of this encounter Care Teams Prn Physical Therapist Relationship Specialty Start Date End Date Dimitri Bardales MD [address] [place] [id number] PCP - General Family Medicine 02/28/18 05/24/22 Aurea Polanco MD [address] [place] [address] PCP - General Family Medicine 05/25/22 07/05/22 Vicki Riggins, MER[facility]ED WITH [facility] [address] [place] [address] PCP - General Physician Tsa Screener 07/06/22 Luisana Carlos, MERGED WITH [facility] [address] [place], [place] [address] Physician Tsa Screener Gastroenterology 10/08/19 documented as of this encounter
--- OUTSIDE RECORDS SUMMARY | 2024-12-11 12:26 | XMS_ITS | Clinical Summary ---
Author Organization [facility] Address [address] [place] [address] Care Team Providers Care Reception Agent Name Role Phone [facility] Primary Care Provider + Source Comments This disclosure is being made pursuant to the Meet[employer] program and maynot contain all information available regarding this patient.[facility] Allergies Active Allergy Reactions Criticality Noted Date Comments Other Other (See Comments) 09/21/2020 Etdhexe-XMV-HZO reductase inhibitors. Reaction: rhabdomyositis - Patients Denies Unaware of this Medications HYDROcodone-acet aminophen (NORCO) 5-325 MG per tablet Take 1 tablet by mouth every 6 (six) hours as needed for Pain. 10 tablet 01/13/2019 Active diclofenac sodium (VOLTAREN) 50 MG EC tablet Take 1 tablet by mouth 2 (two) times daily. 20 tablet 01/13/2019 Active tiZANidine (ZANAFLEX) 4 MG tablet Take 1 tablet by mouth every 8 (eight) hours as needed for Muscle spasms. 15 tablet 01/13/2019 Active metFORMIN (GLUCOPHAGE) 500 MG tablet 1 PO BID 07/17/2019 Active atorvastatin (LIPITOR) 20 MG tablet Take 20 mg by mouth. 07/17/2019 Active aspirin (aspirin) 81 MG EC tablet Take 81 mg by mouth. 07/17/2019 Active glucose blood test strip 1 strip by Does not apply route. 10/18/2016 Active Lancets 30G MISC 1 each by Does not apply route. 10/18/2016 Active lisinopril 20 MG tablet Take 20 mg by mouth. 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 Gender Identity Not on file Sexual Orientation Not on file Last Filed Vital Signs Vital Sign Reading Time Taken Comments Blood Pressure 138/74 07/09/2021 10:39 AM IT INFRASTRUCTURE MANAGER Pulse 89 07/09/2021 9:43 AM IT INFRASTRUCTURE MANAGER Temperature 36.7 C (98 F) 07/09/2021 9:43 AM IT INFRASTRUCTURE MANAGER Respiratory Rate 17 07/09/2021 9:43 AM IT INFRASTRUCTURE MANAGER Oxygen Saturation 94% 07/09/2021 9:43 AM IT INFRASTRUCTURE MANAGER Inhaled Oxygen Concentration - - Weight 132.5 kg (292 lb) 07/09/2021 9:43 AM IT INFRASTRUCTURE MANAGER Height 188 cm (6' 2) 07/09/2021 9:43 AM IT INFRASTRUCTURE MANAGER Body Mass Index 37.49 07/09/2021 9:43 AM IT INFRASTRUCTURE MANAGER Plan of Treatment Health Maintenance Due Date Last Done Comments CT Colonography 1956 Colonoscopy 1956 Colorectal Cancer Screening 1956 Fecal DNA Test 1956 Lab-Hepatitis C Screening 1956 Sigmoidoscopy 1956 Annual Wellness Visit 1974 Tetanus/Pertussis Vaccine Teen/Adult (1 - Tdap) 12/26/1975 FOBT/FIT 1976 Pneumococcal Vaccines 50+ (1 of 1 - PCV) 2006 Zoster (Shingles) Vaccine 50 + (1 of 2) 2006 Lab-Cholesterol Screening 09/06/20212016, 07/01/2016 COVID-19 Vaccine (4 - 2023-2 5 season) 2024 05/14/2021, 08/18/2020, 07/17/2020 Influenza Vaccine (#1) 2025 0, 02/28/2018 RSV Adult (1 - 1-dose 75+ series) 12/26/2031 HIB Vaccine Aged Out No longer eligi ble based on patient's age to complete this topic HPV Vaccine (9-26yo & Shared Decision 27-45yo) Aged Out No longer eligible b ased on patient's age to complete this topic Hepatitis A Vaccine Aged Out No longe r eligible based on patient's age to complete this topic IPV Vaccine Aged Out No longer eligi ble based on patient's age to complete this topic Meningococcal Conjugate Vaccine Aged Out No longer eligible b ased on patient's age to complete this topic RSV < 20 Months Aged Out No longer el igible based on patient's age to complete this topic Procedures Procedure Name Priority Date/Time Associated Diagnosis Comments LIPID PANEL Routine 09/06/2016 6:10 AM CDT from Last 3 Months or Most Recently Relevant to Health Maintenance Results * Lipid panel (09/06/2016 6:10 AM CDT) Cholesterol 154 50 - 200 mg/dL [facility] Comment: ---- Cholesterol Guidelines: Optimal: <200 mg/dl Borderline: 200-240 mg/dl High Risk: >240 mg/dl Triglycerides 126 20 - 150 mg/dL [facility] Comment: ---- Interpretation of Triglycerides: Normal: 20-150 mg/dL Borderline High: 150-199 mg/dL High: 200-499 mg/dL Very High: >/= 500 mg/dL HDL Cholesterol 49 40 - 92 mg/dL [facility] Comment: ---- Interpretation of HDL values: Males: Favorable: >55 mg/dL Moderate Risk: 35-55 mg/dL Elevated Risk: <35 mg/dL Females: Favorable: >65 mg/dl Moderate Risk: 45-65 mg/dL Elevated Risk: <45 mg/dL LDL 80 1 - 129 mg/dL [facility] VLDL Cholesterol 25 0 - 40 mg/dL [facility] Cholesterol/HDL Ratio 3.1 [facility] 09/06/2016 6:10 AM CDT 09/06/2016 4:38 PM CDT us Pj Ospina STICKER ON LAB BLOOD ORDERABLES Final Result Jennifer DUGGAN [facility] [address] [place], [place] [phone] from Last 3 Months or Most Recently Relevant to Health Maintenance Insurance [place] [employer] [facility] PUBLIC AID Care Teams Reception Agent Relationship Specialty Start Date End Date [facility] [address] [place] [address] PCP - General Family Medicine 12/25/17
--- NOTE | 2024-12-11 12:49 | ECG_ITS ---
Test Date: 2024-12-11 13:03:29 Measurements Intervals [place] Rate: 74 P: 52 [place]: 167 QRS: 27 QRSD: 90 T: 116 QT: 393 QTc: 436 Interpretive Statements SINUS RHYTHM NONSPECIFIC ST & T-WAVE ABNORMALITY- HIGH LATERAL LEADS BASELINE ARTIFACT- II, III, V4-V6 BORDERLINE ECG No previous ECG available for comparison Electronically Signed On 12-11-2024 13:11:17 CDT by Toro Reece D.O.
[2024-12-11 13:39] LABS: Anion Gap 6 mmol/L (4-12); Blood Urea Nitrogen 13 mg/dL (9-20); Calcium 8.9 mg/dL (8.4-10.2); Carbon Dioxide 28 mmol/L (22-30); Chloride 108 mmol/L (98-107); Estimated Glomerular Filt Rate > 60; Glucose 80 mg/dL (65-110); Potassium 4.3 mmol/L (3.4-5.0); Sodium 142 mmol/L (137-145)
[2024-12-11 14:08] LABS: Hemoglobin A1C 7.1 % (<5.7)
== END 2024-12-11 11:57 | disposition home or self-care (01) ==
LOC: ANHSURGERY 12:02
PROVIDERS: Anesthesiology; Visit Provider Urology
DX: Z01.818 Encounter for other preprocedural examination (principal); R94.31 Abnormal electrocardiogram [ECG] [EKG]; I10 Essential (primary) hypertension; E11.9 Type 2 diabetes mellitus without complications
CPT/HCPCS: 36415; 80048; 83036; 93005

== ENCOUNTER 2025-01-01 01:10 | Day surgery (SDC) | payer MEDICARE, MEDICAID, SELFPAY ==
[2024-12-11 12:03] VITALS: BP 150/89; PULSE 76; RESP 18; TEMP 36.3; O2SAT 94
[2024-12-11 12:10] VITALS: BMI 37.7
--- NOTE | 2024-12-11 12:26 | PC.NURSE ---
Report to the Outpatient Waiting Room, entrance under the green pavilion located off [facility], at time _1030_ on date _[id number]_. Planned Procedure Time: _1230_.? Time changes happen often and if your time is changed the preop area will call you the afternoon before. - You and your visitor will be asked to self-screen and do not enter if you have any COVID symptoms. Please call surgeon if you need to reschedule. - A mask is optional within the hospital at this time. Patients may have clear liquids (water, carbonated beverages, clear teas, apple juice) until 3 hours prior to surgery with a maximum of 20 ounces. - No food from midnight until time of surgery and no smoking, or chewing tobacco (or any form of nicotine). No chewing gum, candy or mints. Take only the following medications with a SIP of water on the morning of surgery: ____None DO NOT STOP ANY OF YOUR OTHER PRESCRIPTION MEDICATIONS PRIOR TO SURGERY EXCEPT THE FOLLOWING Hold all vitamins and supplements for 3 days per anesthesiologist. Medications to discontinue per physician Date to take last dose Please no make-up, nail malay, hairspray, perfume, deodorant, or body powder the day of surgery.? No jewelry (including any body piercings) or valuables the day of surgery, leave them at home.? Please take a shower or bath the night before, or the morning of, surgery with an antibacterial soap.? Wear comfortable, loose fitting clothing.? - Jewelry must be removed prior to entering the operating room.? Rings and piercings that are not removed may be cut off. - The hospital will not accept responsibility for valuables.? - Please leave all valuables, including medications, at home the day of surgery. If you are going home after surgery, a licensed oil transport driver must drive you home.? - NO public transportation without another adult if you receive anesthesia. - We recommend that an adult stay with you for 24 hours following discharge. - We also recommend that you do not drive, make important decision, drink alcoholic beverages, or take any drugs that were not prescribed by your health care provider for at least 24 hours after your discharge time. Follow any additional instructions given to you from your surgeon. Telephone instructions given to __Leo__and asked if any additional questions and then verbalized understanding. Patient advised to call surgeon office or pre surgery nurse liaison [phone] if any additional questions.
[2025-01-01] VITALS (18 sets, daily range): BP systolic 114–181; BP diastolic 44–108; PULSE 63–105; RESP 16–20; TEMP 35.6–36.3; O2SAT 93–100
--- NOTE | 2025-01-01 09:53 | SUR.PREOP ---
PT STATES DRIVING HIMSELF HOME TOMORROW. INFORMED HE DOES HAVE DRIVING RESTRICTIONS FOR 24 HOURS AFTER ANESTH. ENCOURAGED PT TO ATTEMPT TO FIND A RIDE HOME DUE TO ANESTH., EXTENT OF SURGERY AND LENGTH OF TIME TO DRIVE HOME (3 HOURS). PT STATES HE WILL WORK ON FINDING A RIDE.
[2025-01-01] MEDS: LACTATED RINGERS 1,000 ML 30 ML IV CONT ×2 (10:40→16:00)
[2025-01-01] MEDS: GENTAMICIN SULFATE IVPB (10:50)
[2025-01-01] MEDS: DEXTROSE 5% IVPB (10:50)
[2025-01-01] MEDS: VANCOMYCIN 1,500 MG/NS 500 ML BAG 250 MG IVPB (10:50)
[2025-01-01 10:54] LABS: Hematocrit 43.6 % (42.0-52.0); Hemoglobin 13.6 g/dL (14.0-18.0)
--- NOTE | 2025-01-01 10:55 | WPDANESEPPF ---
Anes - Initial Pre Proc Eval Procedure: Operation Date: 01/01/25 12:30 Proposed Procedures p Insertion Inflatable Penile Prosthesis - Debi Soto MD s Circumcision, Scrotoplasty - Debi Soto MD Date/Time: 01/01/25 10:55 Surgeon: Debi Soto MD Pre Op Diagnosis: ED, phimosis,penile/scrotal webbing Patient Data Age: 69 Gender: M Height: 1.88 m Weight: 132.2 kg Last Vital Signs Temp 97.4 F L 01/01/25 09:48 Pulse 70 01/01/25 09:48 Resp 18 01/01/25 09:48 BP 155/91 H 01/01/25 09:48 Pulse Ox 96 01/01/25 09:48 O2 Del Method Room Air 01/01/25 09:48 Allergies Allergy/AdvReac Type Severity Reaction Status Date / Time No Known Allergies Allergy Verified 01/01/25 10:53 Home Medications ?Medication ?Instructions ?Recorded ?Confirmed ?Type lisinopril 20 mg tablet 20 mg PO DAILY 12/11/24 01/01/25 History metformin 500 mg tablet 1,000 mg PO BID 12/11/24 01/01/25 History terazosin 5 mg capsule 5 mg PO HS 12/11/24 01/01/25 History Laboratory Tests 01/01/25 01/01/25 10:15 10:31 Hgb Pending Hct Pending POC Capillary Glucose 102 mg/dl (65-105) Patient hx anesthesia problems: none Family hx anesthesia problems: none Results Review: All pre-operative results and documents have been reviewed as part of the pre-operative evaluation. PMFSH Social History Social History Years smoked: 10 Smoking status: Former smoker Smoking end date: 12/12/99 Living arrangements: with family Spiritual care concerns: No Anes - Eval Final PreProcedure Day of Procedure 01/01/25 10:55 Patient weight: obese Heart: regular rate and rhythm Lungs: clear to auscultation Airway: Mallampati scale class II Neurological: alert and oriented Last oral intake: >/= 8 hours ASA classification: III Emergent: no Anesthetic plan: proceed Anesthesia type and monitoring: general ETT and standard monitoring Results Review: All pre-operative results and documents have been reviewed as part of the pre-operative evaluation. Informed Consent: The patient's anesthetic plan and its attendant risks and benefits were discussed with the patient/family/POA. Questions were solicited and answers provided to the satisfaction of the patient/family/POA.
--- NOTE | 2025-01-01 12:51 | WPDHPUPDATE1 ---
History and Physical Update Update Date/Time: 01/01/25 12:51 History and Physical has been reviewed, including an updated exam of the patient. There are NO changes in the patient's condition. Risks, benefits, and alternatives have been discussed and questions answered. Patient agrees to proceed with procedure.
--- NOTE | 2025-01-01 14:31 | W.PM.PROC2 ---
Procedure Note - Detailed Date of Procedure 01/01/25 Pre-op Diagnosis ED, phimosis,penile/scrotal webbing Post-op Diagnosis Other (Urethral stricture) Procedure Performed Cystoscopy, urethral dilation, complex Del Cid catheter placement, aborted penile prosthesis procedure Surgeon Debi Soto MD Anesthesia General Description of Procedure Informed consents obtained. Patient to the operating. He was given preoperative IV antibiotics. He was induced anesthesia. We attempted to place a 16 F Del Cid catheter however there was significant resistance. We then attempted a 16 F coude catheter and again encountered resistance. We therefore elected to insert a flexible cystoscope into the urethra and identified a urethral stricture at the membranous urethra. This stricture was approximately 4 to 6 F in size. We were able to advance a wire beyond the level of the stricture and then dilated from 8 to 20 F over the wire with disposable dilators. At this point we inserted a flexible cystoscope beyond the level the stricture and into the bladder. 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 Over the wire we then placed a 16 F [place] tip catheter. At the area of stricture there was significant inflammation and irritation to the urethra on cystoscopy. Given this trauma we elected to postpone placement of penile implant and allow for urethral healing. The patient was then awakened taken recovery room stable condition The patient should follow-up for Del Cid catheter removal in 10 to 14 days. Recommend delaying penile implant insertion for 2 to 3 months with office cystoscopy prior to procedure to ensure the patient would be able to have urethral catheterization at times and plan Pathology None sent Complications No immediate complications Condition Stable Disposition PACU
--- NOTE | 2025-01-01 16:58 | SUR.PHASEI ---
1540: Patient meets PACU discharge criteria, unit bed unavailable at this time. Patient placed in extended recovery status.
--- NOTE | 2025-01-01 17:30 | PC.NURSE ---
This patient, Owen Jennings, was admitted to [facility] Surg Room 302-01. Patient/family oriented to hospital policies and general routines including ID bracelet, bed and alarms, visiting hours, pain management, procedures, bathroom and other care routines, personal items, smoking policy, room service/diet, and visiting hours. Information on how to activate the Rapid Response Team has been discussed. Patient/Family are encouraged to report perceived risks to care and to ask questions if they do not understand what they are told or what they should do.
[2025-01-01] MEDS: TERAZOSIN HCL 5 MG CAPSULE PO (21:24)
[2025-01-02 04:20] VITALS: BP 129/76; PULSE 94; RESP 16; TEMP 36.4; O2SAT 93
--- NOTE | 2025-01-02 09:00 | P.DS_ITS ---
DS: Admitting Diagnosis Discharge Date 01/02/2025 Admitting Diagnosis ED, phimosis,penile/scrotal webbing Post-op Diagnosis Other (Urethral stricture) Procedure Performed Cystoscopy, urethral dilation, complex Meyer catheter placement, aborted penile prosthesis procedure DS: Discharge Diagnosis Discharge Diagnosis Plan penile prosthesis procedure aborted due to finding of urethral stricture. patient had urethral dilation with complex meyer catheter placement. -levofloxacin 500mg po daily for one week. -discharge with meyer catheter. -follow up with dr. heraclio malone in [place] for voiding trial in 10-14 days. This has been confirmed with that physician per dr. chester. -Will follow up with [facility] for reschedule of original planned surgery. DS: Summary Hospital Course Reason for hospitalization: ED, phimosis,penile/scrotal webbing. scheduled for penile prosthesis. Post-op Diagnosis Other (Urethral stricture) Procedure Performed Cystoscopy, urethral dilation, complex Meyer catheter placement, aborted penile prosthesis procedure Hospital Course: ED, phimosis,penile/scrotal webbing Post-op Diagnosis Other (Urethral stricture) Procedure Performed Cystoscopy, urethral dilation, complex Meyer catheter placement, aborted penile prosthesis procedure Patient to discharge on POD 1. Patient is doing well with minimal discomfort. Status at Discharge Functional status at discharge: independent ambulation Overall status at discharge: patient is back to baseline Time Spent with Patient Time attestation: Total time spent providing and/or coordinating discharge services: Exam Const: General: comfortable and no acute distress Eyes: General: appearance normal, both eyes and all related structures Neck: Neck: supple Resp: Effort & Inspection: normal respiratory effort Cardio: Rate: regular rate GI: GI Palp: Yes Soft to palpation Auscultation: normal bowel sounds Urinary Catheter: Urinary Catheter: patent and draining and urine clear Skin: General skin exam: normal color Psych: Mental Status: mental status grossly normal Affect: normal affect DS: Data Data Completed and Pending Labs on day of discharge: Labs from last 24 hours 01/01/25 01/01/25 01/01/25 14:45 10:31 10:15 Hgb 13.6 L Hct 43.6 POC Capillary Glucose 95 102 Discharge Plan Discharge Patient Disposition: Home Patient Language: Austrian Stand Alone Forms: General Discharge Instructions Discharge Medications: New levofloxacin 500 mg Tablet 500 mg PO DAILY 7 Days Qty: 7 0RF Continued metformin 500 mg tablet 1,000 mg PO BID lisinopril 20 mg tablet 20 mg PO DAILY terazosin 5 mg capsule 5 mg PO HS
--- NOTE | 2025-01-02 09:40 | WPDANESPN ---
Anes - Prog Note Post-Op Date/Time: 01/02/25 09:40 Cardiovascular status: normal Respiratory status: normal Airway patency: baseline Mental status: baseline Post-Op hydration status: normal Vital Signs: Last Vital Signs Temp 36.4 C L 01/02/25 04:20 Pulse 94 01/02/25 04:20 Resp 16 01/02/25 04:20 BP 129/76 01/02/25 04:20 Pulse Ox 93 01/02/25 04:20 O2 Del Method Room Air 01/01/25 20:00 O2 Flow Rate 2 01/01/25 16:45 Pain Score (VAS): 2 I/O: Intake & Output 01/01/25 01/02/25 01/02/25 23:59 07:59 15:59 Intake Total 300 744 Output Total 1275 825 Balance -975 -81 Laboratory Tests 01/01/25 10:31 01/01/25 01/01/25 01/01/25 10:15 10:31 14:45 Hgb 13.6 L Hct 43.6 POC Capillary Glucose 102 95 Patient Feedback: Patient satisfied with anesthetic care.
== END 2025-01-02 10:55 | disposition home or self-care (01) ==
LOC: ANHSURGERY 09:26 → ANH3MEDSUR 18:03
PROVIDERS: Anesthesiology; Visit Provider Urology
PROC: (CPT 52281; principal; 2025-01-01 12:30)
DX: N52.01 Erectile dysfunction due to arterial insufficiency (principal); N40.1 Benign prostatic hyperplasia with lower urinary tract symptoms; N35.913 Unspecified membranous urethral stricture, male; N47.1 Phimosis; I10 Essential (primary) hypertension; E11.9 Type 2 diabetes mellitus without complications; E66.9 Obesity, unspecified; Z68.37 Body mass index [BMI] 37.0-37.9, adult; Z79.84 Long term (current) use of oral hypoglycemic drugs; Z87.891 Personal history of nicotine dependence; Z80.42 Family history of malignant neoplasm of prostate
CPT/HCPCS: 52281; 36415; 82948; 85014; 85018; A9270; C1769; J0690; J1100; J1580; J2003; J2250; J2405; J2704; J3010; J3373; J7030; J7120

== ENCOUNTER 2025-04-09 10:00 | Outpatient (CLI) | payer MEDICARE, SELFPAY ==
--- OUTSIDE RECORDS SUMMARY | 2025-04-09 11:21 | XMS_ITS | Encounter Summary ---
Author Organization [facility] Address [address] [place] [address] Phone Care Team Providers Care Gusset Ripper Name Role Phone Dimitri Bardales MD Primary Care Provider [phone] Luisana Carlos PAC Unavailable Aurea Polanco MD Primary Care Provider [phone] Vicki Riggins PAC Primary Care Provider + Reason for Visit * Reason Comments Medication Refill Encounter Details Date Type Department Care Team (Late st Contact Info) Description 07/02/2020 Refill [facility] [address] [place] [address] Dimitri Bardales MD [address] [place] [address] Medication Refill Social History Tobacco [...] PM CDT Legal Sex Male 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 Bardales UTER DESIGNER documented in this encounter Plan of Treatment Upcoming Encounters Date Type Department Care Team (Late st Contact Info) Description 04/15/2025 9:00 AM COMPUTER DESIGNER Office Visit [facility] [address] [place] [phone] Vicki Riggins PAC [address] [place] [phone] documented as of this encounter Visit Diagnoses Diagnosis Erectile dysfunction, unspecified erectile dysfunction type documented in this encounter Additional Health Concerns Assessment Noted Time PHQ-9 Depression Total Score: 0 05/11/19 21 4:00 PM COMPUTER DESIGNER documented as of this encounter Care Teams Gusset Ripper Relationship Specialty Start Date End Date Dimitri Bardales MD [address] [place], [place] [phone] PCP - General Family Medicine 02/28/18 05/24/22 [place] [address] [place] [id number] PCP - General Family Medicine 05/25/22 07/05/22 Vicki Riggins PAC [address] [place] [address] PCP - General Physician Conservation Educator 07/06/22 Luisana Carlos PAC [address] [place], [place] [phone] Physician Conservation Educator Gastroenterology 10/08/19 documented as of this encounter
--- OUTSIDE RECORDS SUMMARY | 2025-04-09 11:21 | XMS_ITS ---
Author Organization [facility] Address [address] [place] [address] Phone Care Team Providers Care Freezer Unloader Name Role Phone PoScarlet gonzalezabbey Frosten PAC Unavailable [phone] Vicki Riggins PAC Primary Care Provider + Mike Chronic Condition Monitoring Status:Enrolled (Active) Start date:04/19/2023 Enrollment date:04/20/2023 Current support & services provided:Diabetes Management, Hypertension Management Related social drivers of health:Social Connections, Alcohol Use, Tobacco Use, Financial Resource Strain, Stress, Physical Activity,Food Insecurity, Transportation Needs, Housing Stability, Utilities Continued Care and Services Coordination
--- OUTSIDE RECORDS SUMMARY | 2025-04-09 11:21 | XMS_ITS | Encounter Summary ---
Author Organization [facility] Address [address] [place] [address] Phone Care Team Providers Care Inspector And Hand Packager Name Role Phone Dimitri Bardales MD Primary Care Provider [phone] Luisana Carlos PAC Unavailable [phone] Aurea Polanco MD Primary Care Provider [phone] Vicki Riggins PAC Primary Care Provider + Reason for Visit * Reason Comments Medication Refill Encounter Details Date Type Department Care Team (Late st Contact Info) Description 11/03/2020 Refill [facility] [address] [place] [address] Dimitri Bardales MD [address] [place] [address] Medication Refill Social History Tobacco [...] PM CDT Legal Sex Male 3:17 AM RV SERVICER Gender Identity Male 12/30/2016 3:45 PM CDT [...] st Contact Info) Description 04/15/2025 9:00 AM RV SERVICER Office Visit [facility] [address] [address] Vicki Riggins PAC [address] [place] [phone] documented as of this encounter Visit Diagnoses Diagnosis Mixed hyperlipidemia Essential hypertension Unspecified essential hypertension documented in this encounter Additional Health Concerns Assessment Noted Time PHQ-9 Depression Total Score: 0 09/08/19 21 3:00 PM CDT documented as of this encounter Care Teams Inspector And Hand Packager Relationship Specialty Start Date End Date Dimitri Bardales MD [address] [place] [phone] PCP - General Family Medicine 02/28/18 05/24/22 Aurea Polanco MD [address] [place] [phone] PCP - General Family Medicine 05/25/22 07/05/22 Vicki Riggins PAC [address] [place] [phone] PCP - General Physician Competency Evaluated Nurse Aide 07/06/22 Luisana Carlos, KRISTOPHER [address] [place] [address] Physician Competency Evaluated Nurse Aide Gastroenterology 10/08/19 documented as of this encounter
--- OUTSIDE RECORDS SUMMARY | 2025-04-09 11:21 | XMS_ITS | Encounter Summary ---
Author Organization [facility] Address [address] [place] [address] Phone Care Team Providers Care Team Psychologist Name Role Phone Dimitri Bardales MD Primary Care Provider [phone] Luisana Carlos PAC Unavailable Aurea Polanco MD Primary Care Provider [phone] Vicki Riggins PAC Primary Care Provider + Reason for Visit * Reason Comments Medication Refill Encounter Details Date Type Department Care Team (Late st Contact Info) Description 06/29/2020 Refill [facility] [address] [place] [address] Dimitri Bardales MD [address] [place] [address] Medication Refill Social History Tobacco [...] PM CDT Legal Sex Male 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 Bardales on 12/31/2018 for reorder. OL BUS OPERATOR documented in this encounter Plan of Treatment Upcoming Encounters Date Type Department Care Team (Late st Contact Info) Description 04/15/2025 9:00 AM SCHOOL BUS OPERATOR Office Visit [facility] [address] [place] [phone] Vicki Riggins PAC [address] [place] [phone] documented as of this encounter Visit Diagnoses Diagnosis Erectile dysfunction, unspecified erectile dysfunction type documented in this encounter Additional Health Concerns Assessment Noted Time PHQ-9 Depression Total Score: 0 05/11/19 21 4:00 PM SCHOOL BUS OPERATOR documented as of this encounter Care Teams Team Psychologist Relationship Specialty Start Date End Date Dimitri Bardales MD [address] [place], [place] [phone] PCP - General Family Medicine 02/28/18 05/24/22 [place] [address] [place] [phone] PCP - General Family Medicine 05/25/22 07/05/22 [place] [address] [place] [phone] PCP - General Physician Card Folder 07/06/22 Luisana Carlos, PAC [address] [place], [place] [address] Physician Card Folder Gastroenterology 10/08/19 documented as of this encounter
--- OUTSIDE RECORDS SUMMARY | 2025-04-09 11:21 | XMS_ITS | Clinical Summary ---
Author Organization [facility] Address [address] [place] [address] Phone Care Team Providers Care Portrait Studio Photographer Name Role Phone Luisana Carlos PAC Unavailable Vicki Riggins PAC Primary Care Provider + Allergies Active Allergy Reactions Criticality Noted Date Comments Other Other (see Comments) Ywlvduk-OUK-GPU reductase inhibitors. Reaction: rhabdomyositis - Patients Denies Unaware of this Medications Glucose Blood StripIndications :Type 2 diabetes mellitus without complication, without long-term current use of insulin 1 Strip by Does not apply route daily. 100 Strip 3 10/19/19 17 Active Additional Information Patient not taking.Reported on 02/10/2025 naproxen (NAPROSYN) 500 MG TabletIndication s:Low back pain of over 3 months duration Take 1 Tablet by mouth 2 times daily (with meals). 60 Tablet 5 01/09/20 21 Active Additional Information Patient not taking.Reported on 02/10/2025 latanoprost (XALATAN) 0.005 % Solution 02/12/20 23 Active COMPOUNDED MEDICATION Quad Mix for ICI Papaverine 30 mg/mL Phentolamine 4 mg/mL Prostaglandin E 40 mcg/mL Atropine 160 mcg/mL Start with 10 units (0.1 mL) daily as needed. Can increase by 10 units (0.1 mL) each dose to a maximum of 100 units (1mL). 5 mL 06/04/19 25 Active Additional Information Patient not taking.Reported on 02/10/2025 Insulin Syringe-Needle U-100 (INSULIN SYRINGE 1CC/31GX5/16) 31G X 5/16 1 ML Misc For penile injections daily as needed 100 Each 06/05/19 Active Additional Information Patient not taking.Reported on 02/10/2025 testosterone enanthate 200 MG/ML SolutionIndicati ons:Primary male hypogonadism 0.5 mL by Intramuscular route once a week. 5 mL 3 09/11/19 Active Additional Information Patient not taking.Reported on 02/10/2025 terazosin (HYTRIN) 5 MG Capsule Take 1 Capsule by mouth nightly. 90 Capsule 3 09/11/19 Active SYRINGE-NEEDLE, DISP, 3 ML (BD Luer-Lock Syringe) 18G X 1-1/2 3 ML Misc 1 Each by Does not apply route once a week. 12 Each 2 09/11/19 Active Additional Information Patient not taking.Reported on 02/10/2025 NEEDLE, DISP, 25 G (BD Disp Veyo) 25G X 5/8 Misc 1 Each by Does not apply route once a week. 12 Each 3 09/11/19 Active Additional Information Patient not taking.Reported on 02/10/2025 lisinopril (PRINIVIL, ZESTRIL) 20 MG TabletIndication s:Primary hypertension Take 1 Tablet by mouth daily. 90 Tablet 1 10/15/19 25 Active metFORMIN (GLUCOPHAGE) 500 MG TabletIndication s:Type 2 diabetes mellitus with hyperglycemia, without long-term current use of insulin Take 2 Tablets by mouth 2 times daily (with meals). 360 Tablet 1 10/15/19 25 Active fluconazole (DIFLUCAN) 150 MG TabletIndication s:Balanitis Take at onset of symptoms. Repeat in 3 days if needed 2 Tablet 01/10/20 Active Additional Information Patient not taking.Reported on 02/10/2025 Active Problems Problem Noted Date Diagnosed Date [...] Encounters Date Type Department Care Team Description 02/10/2025 10:45 AM CDT Office Visit [facility] [address] [place] [phone] Betzy Amaro, BODY AND FENDER MECHANIC APPRENTICE, SHIRT SEWER Herpes simplex virus (HSV) infection (Primary Dx) 02/10/2025 Travel 01/13/2025 2:45 PM CDT Office Visit [facility] [address] [place] [phone] Nona Joy APRN, PRESSER COTTON GINNING BPH with obstruction/lower urinary tract symptoms (Primary Dx) Discharge Disposition: Discharged to home or Selfcare 01/13/2025 8:00 AM CDT Office Visit [facility] [address] [place] [phone] [place] [address] Urology Nurse, RN BPH with obstruction/lower urinary tract symptoms (Primary Dx) Discharge Disposition: Discharged to home or Selfcare 01/13/2025 Travel 01/09/2025 11:40 AM CDT Urgent Care Visit [facility] [address] [place] [phone] Coty Motley APRN, SHIRT SEWER Balanitis (Primary Dx) Discharge Disposition: Discharged to home or Selfcare 01/09/2025 Travel from Last 3 Months Immunizations Immunization Administration [...] 03/13/1997 Smokeless Tobacco: Never Tobacco Cessation:Counseling Given: Not Answered Alcohol Use Standard Drinks/Week Comments No 0 (1 standard drink = 0.6 oz pur e alcohol) PHQ-2 Answer Date Recorded Total Score - Questions 1-9 0 01/2025 Sex and Gender Information Value Date Recorded Sex Assigned at Male 12/30/2016 3:45 PM CDT Legal Sex Male 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 FILLER OPERATOR Gender Identity Male 12/30/2016 3:45 PM CDT Sexual Orientation Straight 12/30/2016 3: 45 PM CDT Last Filed Vital Signs Vital Sign Reading Time Taken Comments Blood Pressure 140/98 02/10/2025 10:53 AM CDT lt arm Pulse 84 02/10/2025 10:53 AM CDT Temperature 36.2 C (97.2 F) 02/10/2025 10:53 AM CDT Respiratory Rate 16 02/10/2025 10:5 3 AM CDT Oxygen Saturation 94% 02/10/2025 10: 53 AM CDT Inhaled Oxygen Concentration - - Weight 134.8 kg (297 lb 3.2 oz) 025 10:53 AM CDT Height 188 cm (6' 2) 02/10/2025 10:53 AM CDT Body Mass Index 38.16 02/10/2025 10:53 AM CDT Plan of Treatment Upcoming Encounters Date Type Department Care Team (Late st Contact Info) Description 04/15/2025 9:00 AM BACK FILLER OPERATOR Office Visit [facility] [address] [place] [address] Vicki Riggins PAC [address] [place] [address] Health Maintenance Due Date Last Done Comments Diabetes: Foot Exam 1955 Hepatitis C Virus (HCV) Screening 1955 TdaP Immunization 1955 Pneumococcal Immunization (50+ years) (1 of 2 - PCV) 12/26/1975 Cologuard 2001 Zoster Immunization (1 of 2) 2006 Medicare Initial AWV [id number] 01/05/2010 Immunochemical Fecal Occult Blood 07/21/2020 07/22/2019 AAA Screening Ultrasound 2021 Colonoscopy 10/20/2024 10/21/2019, 12/2016, 03/15/2017 Colorectal Cancer Screening 10/20/2024 Influenza Immunization (#1) 01/06/202501/2024, 02/15/2023, 04/28/2022, Additional history exists SARS-COV-2 Immunization ( season) 2025 04/13/2023, 04/28/2022, 04/28/2022, Additional history exists Diabetes: Eye Exam 01/31/2025 02/01/2024, 06/19/2018 Diabetes: Hemoglobin A1c 04/15/2025 025, 04/15/2024, 02/01/2024, Additional history exists Diabetes: Nephropathy Screening 09/09/2025 09/09/2024, 09/19/2023, 06/16/2022, Additional history exists Respiratory Syncytial Virus (RSV) Immunization (Adult) (1 - 1-dose 75+ series) 12/26/2031 PSA Discussion Completed 09/09/2024, 02/05, 01/03/2022, Additional [...] Procedure Name Priority Date/Time Associated Diagnosis Comments POCT UA AUTOMATED W/O MICRO Routine 01/13/2025 2:22 PM CDT BPH with obstruction/lower urinary tract symptoms HEMOGLOBIN A1C W/ ESTIMATED GLUCOSE Routine 10/14/2024 [...] Relevant to Health Maintenance Results * (ABNORMAL) POCT UA AUTOMATED W/O MICRO (01/13/2025 2:22 PM CDT) [facility] POC UA SPECIFIC GRAVITY 1.005 URINE PH 6.0 5.0 - 9.0 POC URINE LEUKOCYTES 75 /uL(A) Negative Jennifer/uL POC URINE NITRITE Negative Negative POC URINE PROTEIN Negative Negative mg/dL POC URINE GLUCOSE Negative Negative, Norm mg/dL POC URINE KETONE Negative Negative mg/dL POC URINE UROBILINOGEN Norm Norm, 0.2 E.U./dL (mg/dL), 1 E.U./dL (mg/dL) POC URINE BILIRUBIN Negative Negative mg/dL POC URINE BLOOD INSTRUMENT 50 Jonathan/uL(A) Negative Jonathan/uL POC URINE COLOR Light-Yellow POC URINE CLARITY Clear Urine 01/13/2025 2:22 PM CDT us Nona Joy APRN, PRESSER COTTON GINNING POINT OF CARE TEST ING (MANUAL) Final Result * (ABNORMAL) HEMOGLOBIN A1C W/ ESTIMATED GLUCOSE (10/14/2024 9:11 AM CDT) [facility] HGB-A1C 6.8(H) 4.0 - 6.0 % 10/14/2024 3:20 PM CDT [facility] Est Average Glucose 148.5 mg/dL 10/14/2024 3:20 PM CDT [facility] Blood Venipuncture / Unknown 10/14/2024 9:11 AM CDT 10/14/2024 9:18 AM CDT Narrative [facility] - 10/14/2024 3:20 PM CDT Specimens containing greater than 5% of Hemoglobin F may result in lower than expected % HbA1c results. [facility] Navarreteshanonlisa [facility] CHEMISTRY ORDERABLES Fin al Result Performing Organization Address [facility] Co de Phone Number [facility] [address] [place] [address], [place] * PSA DIAGNOSTIC,TOTAL (09/09/2024 11:12 AM CDT) PSA, TOTAL (PROSTATIC SPECIFIC ANTIGEN) 0.49 <4.00 ng/mL 09/09/2024 4:26 PM CDT [facility] Blood Venipuncture / Unknown 09/09/2024 11:12 AM CDT 09/09/2024 11:12 AM CDT Narrative [facility] - 09/09/2024 4:26 PM CDT [employer] Total PSA assay is a Chemiluminescent Microparticle Immunoassay (CMIA) for the quantitative determination of total PSA (both free PSA and PSA complexed to uccis-[id number]) in human serum. Total PSA values obtained with different assay methods, including Yancey PSA assays, cannot be used interchangeably. Triston Storey APRN, PRESSER COTTON GINNING CHEMISTRY ORDERABLES F inal Result Performing Organization Address [facility] Co de Phone Number [facility] [address] [place] [address], [place] * (ABNORMAL) CMP (COMPREHENSIVE METABOLIC PANEL) (09/09/2024 11:12 AM CDT) SODIUM 141 136 - 145 mmol/L 09/09/2024 3:44 PM CDT [facility] POTASSIUM 4.1 3.5 - 5.1 mmol/L 09/09/2024 3:44 PM CDT [facility] CHLORIDE 107 98 - 107 mmol/L 09/09/2024 3:44 PM CDT [facility] CO2, VENOUS 27 22 - 30 mmol/L 09/09/2024 3:44 PM CDT [facility] ANION GAP 7.0 <18.0 mmol/L 09/09/2024 3:44 PM CDT [facility] GLUCOSE 146(H) 70 - 99 mg/dL 09/09/2024 3:44 PM CDT [facility] BUN 9 8 - 26 mg/dL 09/09/2024 3:44 PM CDT [facility] CREATININE, BLOOD 0.80 0.70 - 1.30 mg/dL 09/09/2024 3:44 PM CDT [facility] BUN/CREATININE RATIO 11(L) 12 - 20 ratio 09/09/2024 3:44 PM CDT [facility] TOTAL PROTEIN 6.7 6.0 - 8.0 g/dL 09/09/2024 3:44 PM CDT [facility] ALBUMIN 3.9 3.5 - 5.0 g/dL 09/09/2024 3:44 PM CDT [facility] A/G RATIO 1.4 1.0 - 2.2 09/09/2024 3:44 PM CDT [facility] CALCIUM 8.6(L) 8.7 - 10.5 mg/dL 09/09/2024 3:44 PM [facility] T BILI 0.6 0.2 - 1.2 mg/dL 09/09/2024 3:44 PM CDT [facility] SGOT (AST) 35 <43 U/L 09/09/2024 3:44 PM T [facility] SGPT (ALT) 43 <56 U/L 09/09/2024 3:44 PM [facility] ALKALINE PHOSPHATASE 79 40 - 150 U/L 09/09/2024 3:44 PM [facility] IS THE PATIENT REQUIRED TO BE FASTING? No 09/09/2024 3:44 PM CDT [facility] GFR, ESTIMATED >60 >=60 09/09/2024 3:44 PM T [facility] Comment: Creatinine Clearance is the preferred criteria for selecting drug dose adjustments in renally impaired patients. The GFR is provided as additional pertinent clinical information. GFR is reported in mL/min/1.73 sq m. Calculation based on the Chronic Kidney Disease Epidemiology Collaboration (CKD- EPI) equation refit without adjustment for race. GFR, EST. >60 >=60 025 3:44 PM CDT [facility] GFR, EST. NONAFRICAN >60 >=60 09/09/2024 3:44 PM CDT [facility] Blood Venipuncture / Unknown 09/09/2024 11:12 AM CDT 09/09/2024 11:12 AM CDT us Triston Storey APRN, PRESSER COTTON GINNING CHEMISTRY ORDERABLES F inal Result Performing Organization Address [facility] Co de Phone Number [facility] [address] [place] [address], [place] * (ABNORMAL) STOOL, OCCULT BLOOD IMMUNOASSAY (IFOB) (07/22/2019 7:30 AM CDT) OCCULT BLOOD - IFOB Positive(A ) Negative 07/22/2019 12:41 PM CDT [facility] Specimen of unknown material (specimen) STOOL SPECIMEN / Unknown Non-Phlebotomy Collection / Unknown 07/22/2019 7:30 AM CDT 07/22/2019 9:40 AM CDT us Dimitri Bardales MD BODY FLUIDS & STOOLS ORDERABL ES Final Result [facility] [address] [place] [address], [place] from Last 3 Months or Most Recently Relevant to Health Maintenance Insurance MEDICARE Member Subscriber Plan / Payer (Ef fective 2023-Present) Name:Owen Jennings Member ID:[id number] Relation to Subscriber:Self Name:Owen Jennings Subscriber ID:[id number] Payer ID:[id number] Group ID:Not on file Type:Not on file Address: [address] MEDICARE Advance Directives * Full Code (Latest Code Status on File) Date Activated Date Inactivated Comments 10/25/2011 9:14 PM 10/28/2011 3:12 PM Care Teams Portrait Studio Photographer Relationship Specialty Start Date End Date Vicki Riggins PAC [address] [place] [phone] PCP - General Physician Cut Off Worker 07/06/22 Luisana Carlos PAC [address] [place] [address] Physician Cut Off Worker Gastroenterology 10/08/19
--- OUTSIDE RECORDS SUMMARY | 2025-04-09 11:21 | XMS_ITS | Clinical Summary ---
Author Organization [facility] Address [address] [place] [address] Care Team Providers Care Purchasing Analyst Name Role Phone [facility] Primary Care Provider + Source Comments This disclosure is being made pursuant to the [employer] program and maynot contain all information available regarding this patient.[facility] Allergies Active Allergy Reactions Criticality Noted Date Comments Other Other (See Comments) 09/21/2020 Lnnqzxi-XYD-TSO reductase inhibitors. Reaction: rhabdomyositis - Patients Denies [...] on file Legal Sex Male 1:10 PM REINFORCING BAR SETTER Gender Identity Not on file Sexual Orientation Not on file Last Filed Vital Signs Vital Sign Reading Time Taken Comments Blood Pressure 138/74 07/09/2021 10:39 AM REINFORCING BAR SETTER Pulse 89 07/09/2021 9:43 AM REINFORCING BAR SETTER Temperature 36.7 C (98 F) 07/09/2021 9:43 AM REINFORCING BAR SETTER Respiratory Rate 17 07/09/2021 9:43 AM REINFORCING BAR SETTER Oxygen Saturation 94% 07/09/2021 9:43 AM REINFORCING BAR SETTER Inhaled Oxygen Concentration - - Weight 132.5 kg (292 lb) 07/09/2021 9:43 AM REINFORCING BAR SETTER Height 188 cm (6' 2) 07/09/2021 9:43 AM REINFORCING BAR SETTER Body Mass Index 37.49 07/09/2021 9:43 AM REINFORCING BAR SETTER Plan of Treatment Health Maintenance Due Date [...] Screening 09/06/20212016, 07/01/2016 COVID-19 Vaccine (4 - 2024-2 6 season) 2025 05/14/2021, 08/18/2020, 07/17/2020 Influenza Vaccine (#1) 2025 [...] CDT) Cholesterol 154 50 - 200 mg/dL [facility] Comment: ---- Cholesterol Guidelines: Optimal: <200 mg/dl Borderline: 200-240 mg/dl High Risk: >240 mg/dl Triglycerides 126 20 - 150 mg/dL [facility] Comment: ---- Interpretation of Triglycerides: Normal: 20-150 mg/dL Borderline High: 150-199 mg/dL High: 200-499 mg/dL Very High: >/= 500 mg/dL HDL Cholesterol 49 40 - 92 mg/dL [facility] Comment: ---- Interpretation of HDL values: Males: Favorable: >55 mg/dL Moderate Risk: 35-55 mg/dL Elevated Risk: <35 mg/dL Females: Favorable: >65 mg/dl Moderate Risk: 45-65 mg/dL Elevated Risk: <45 mg/dL LDL 80 1 - 129 mg/dL [facility] VLDL Cholesterol 25 0 - 40 mg/dL [facility] Cholesterol/HDL Ratio 3.1 [facility] 09/06/2016 6:10 AM CDT 09/06/2016 4:38 PM CDT us Pj Ospina TRAFFIC SIGN SUPERVISOR LAB BLOOD ORDERABLES Final Result [facility] [address] [place], [place] [phone] from Last 3 Months or Most Recently Relevant to Health Maintenance Insurance [place] [employer] [facility] PUBLIC AID Care Teams Purchasing Analyst Relationship Specialty Start Date End Date [facility] Boyer [address] [place] [address] PCP - General Family Medicine 12/25/17
--- OUTSIDE RECORDS SUMMARY | 2025-04-09 11:21 | XMS_ITS | Encounter Summary ---
Author Organization [facility] Address [address] [place] [address] Phone Care Team Providers Care Landscaping Crew Leader Name Role Phone Luisana Carlos PAC Unavailable Vicki Riggins PAC Primary Care Provider + Encounter Details Date Type Department Care Team (Late st Contact Info) Description 04/07/2023 Telephone [facility] [address] [place] [phone] Triston Storey, ALLIGATOR SHEAR OPERATOR, CARDIOPULMONARY PHYSICAL THERAPIST [address] [phone] Social History Tobacco Use Types [...] PM CDT Legal Sex Male 3:17 AM MECHANICAL REPAIR WORKER Gender Identity Male 12/30/2016 3:45 PM CDT [...] PA required for Terazosin 2 mg caps ANICAL REPAIR WORKER * Telephone Encounter - Maribel Ricardo - 04/07/2023 3:44 PM CST PA for Terazosin 2 mg caps has been initiated through cmm Sánchez: [id number] ANICAL REPAIR WORKER documented in this encounter Plan of Treatment Upcoming Encounters Date Type Department Care Team (Late st Contact Info) Description 04/15/2025 9:00 AM MECHANICAL REPAIR WORKER Office Visit [facility] [address] [place] [address] [phone] Vicki Riggins PAC [address] [place] [address] [phone] documented as of this encounter Visit Diagnoses Not on filedocumented in this encounter Additional Health Concerns Assessment Noted Time PHQ-9 Depression Total Score: 0 03/08/20 10:00 AM CDT documented as of this encounter Care Teams Landscaping Crew Leader Relationship Specialty Start Date End Date Vicki Riggins PAC [address] [place] [phone] PCP - General Physician Head Concierge 07/06/22 Luisana Carlos PAC [address] [place], [place] [phone] Physician Head Concierge Gastroenterology 10/08/19 documented as of this encounter
--- OUTSIDE RECORDS SUMMARY | 2025-04-09 11:22 | XMS_ITS | Clinical Summary ---
Author Organization [facility] Address [address] [place] [address] Phone Care Team Providers Care Siebel Architect Name Role Phone Identified, No Provider Primary Care Provider Un available Allergies Active Allergy Reactions Criticality Noted Date Comments Other Other; see comment 09/21/2020 Tgngcsm-WPT-DJT reductase inhibitors. Reaction: rhabdomyositis - Patients Denies Unaware of this Medications * This document contains information received from the source organization and may not represent a complete record from that organization. diclofenac (VOLTAREN) 50 mg enteric coated tablet Take 1 tablet by mouth 2 (two) times daily. 01/13/2019 Active tiZANidine (ZANAFLEX) 4 mg tablet Take 1 tablet by mouth every 8 (eight) hours as needed for Muscle spasms. 01/13/2019 Active metFORMIN 500 mg tablet 1 PO BID 07/17/2019 Active atorvastatin (LIPITOR) 20 mg tablet Take 20 mg by mouth 07/17/2019 Active aspirin enteric coated 81 mg tablet, delayed release Take 81 mg by mouth 07/17/2019 Active lisinopriL 20 mg tablet Take 20 mg by mouth 07/17/2019 Active baclofen 10 mg tablet 1/2 - 1 PO TID PRN 01/08/2021 Active ibuprofen 600 mg tabletIndication s:Acute pain of right shoulder Take 1 tablet (600 mg total) by mouth every 8 (eight) hours as needed for pain 10 tablet 02/27/2024 Active cyclobenzaprine 10 mg tabletIndication s:Acute pain of right shoulder Take 1 tablet (10 mg total) by mouth 3 (three) times daily as needed for muscle spasm 10 tablet 02/27/2024 Active Social History Tobacco Use Types Packs/Day Years Used Date Smoking Tobacco: Never Smokeless Tobacco: Never Alcohol Use Standard Drinks/Week Comments No 0 (1 standard drink = 0.6 oz pur e alcohol) Sex and Gender Information Value Date Recorded Sex Assigned at Not on file Legal Sex Male 8:14 AM CDT Gender Identity Not on file Sexual Orientation Not on file Last Filed Vital Signs Vital Sign Reading Time Taken Comments Blood Pressure 193/113 02/27/2024 11:31 PM CDT Pulse 74 02/27/2024 11:31 PM CDT Temperature 36.4 C (97.5 F) 02/27/2024 11:31 PM CDT Respiratory Rate 16 02/27/2024 11:31 PM CDT Oxygen Saturation 94% 02/27/2024 11:31 PM CDT Inhaled Oxygen Concentration - - Weight 129.3 kg (285 lb) 02/27/2024 4:35 PM CDT Height 188 cm (6' 2) 02/27/2024 4:35 PM CDT Body Mass Index 36.59 02/27/2024 4:35 PM CDT Plan of Treatment Health Maintenance Due Date Last Done Comments Diagnostic Colonoscopy 1956 Depression Screening 1968 DTaP/Tdap/Td Vaccines (1 - Tdap) 12/26/1975 CT Colonography 2001 Colorectal Cancer Screening 2001 FIT-DNA (Cologuard) 2001 Fecal Immunochemical Testing (FIT) 2001 Fecal Occult Blood (FOBT) 2001 Flexible Sigmoidoscopy 2001 Screening Colonoscopy 2001 HCPOA Document on File 2006 Pneumococcal Vaccines (50+) (1 of 1 - PCV) 2006 Zoster (Shingles) Vaccine (1 of 2) 2006 Prostate Cancer Screening (PSA) 12/26/2011 Fall Screening 2021 COVID-19 Vaccine ( season) 2025 04/13/2023, 04/28/2022, 05/14/2021, Additional history exists Eligible for Initial Annual Medicare Wellness Exam 01/06/2025 Influenza Vaccine (#1) 2025 , 02/15/2023, 04/28/2022, Additional history exists RSV Vaccine (60+/) (1 - 1-dose 75+ series) 12/26/2031 HIB Vaccines Aged Out No longer eligi ble based on patient's age to complete this topic HPV Vaccines Aged Out No longer eligi ble based on patient's age to complete this topic Hepatitis A Vaccines Aged Out No long er eligible based on patient's age to complete this topic Hepatitis B Vaccines Aged Out No long er eligible based on patient's age to complete this topic IPV Vaccines Aged Out No longer eligi ble based on patient's age to complete this topic Meningococcal B Vaccine Aged Out No l onger eligible based on patient's age to complete this topic Meningococcal Vaccine (ACWY) Aged Out No longer eligible based on patient's age to complete this topic Rotavirus Vaccines Aged Out No longer eligible based on patient's age to complete this topic Insurance MEDICARE [place] MEDICAID MEDICARE Member Subscriber Plan / Payer (Ef fective 2024-Present) Name:Owen Jennings Member ID:[id number] Relation to Subscriber:Self Name:Shannan Jenningso Subscriber ID:[id number] Payer ID:[id number] Group ID:Not on file Type:Medicare Address: ATTN CLAIMS [address] MEDICAID MEDICARE MEDICAID Care Teams Siebel Architect Relationship Specialty Start Date End Date Identified, No Provider PCP - General 02/27/24
[2025-04-09 11:32] LABS: Anion Gap 1 mmol/L (4-12); Blood Urea Nitrogen 12 mg/dL (9-20); Calcium 9.2 mg/dL (8.4-10.2); Carbon Dioxide 29 mmol/L (22-30); Chloride 106 mmol/L (98-107); Estimated Glomerular Filt Rate > 60; Glucose 204 mg/dL (65-110); Potassium 4.0 mmol/L (3.4-5.0); Sodium 136 mmol/L (137-145)
[2025-04-09 11:47] LABS: Hemoglobin A1C 6.7 % (<5.7)
== END 2025-04-09 10:01 | disposition home or self-care (01) ==
LOC: ANHSURGERY 10:10
PROVIDERS: Anesthesiology; Visit Provider Urology
DX: E11.9 Type 2 diabetes mellitus without complications (principal); N52.9 Male erectile dysfunction, unspecified; Z01.818 Encounter for other preprocedural examination
CPT/HCPCS: 36415; 80048; 83036; 87086

== ENCOUNTER 2025-04-23 01:11 | Day surgery (SDC) | payer MEDICARE, SELFPAY ==
[2025-04-09 10:20] VITALS: BP 164/89; PULSE 94; RESP 16; TEMP 37.2; O2SAT 98; BMI 38.3
--- NOTE | 2025-04-09 10:34 | PC.NURSE ---
Addendum entered by Meagan Guzmán RN 04/09/25 10:46: Pt BP up today, pt had stressful am getting here, states he will get it checked and FU with PCP if it remains elevated, he understands we want it down to Normal for his surgery. Pt understands JRRN Original Note: [facility] has started construction of its new state of the art ER which will open Spring 2026. With this, we anticipate parking may be a challenge for some our surgical patients and families. Parking spaces are limited but are available for all Surgical, obstetrics, and ER patients sharing this lot. If you arrive and find you are having a hard time finding a parking space, please note that we understand the challenges, please drive around the hospital and park near Hospital Entrance 1. When you enter this entrance, you can ask a volunteer to direct or take you back to the surgical waiting area to check in. We appreciate everyone?s understanding of these expected challenges while we build for your future. Report to the Outpatient Waiting Room, entrance under the green pavilion located off [facility] [address], at time __06:00am on date __04/23/25 . Planned Procedure Time: __07:30am .? Time changes happen often and if your time is changed the preop area will call you the afternoon before. - You and your visitor will be asked to self-screen and do not enter if you have any COVID symptoms. Please call surgeon if you need to reschedule. - A mask is optional within the hospital at this time. Patients may have clear liquids (water, carbonated beverages, clear teas, apple juice) until 3 hours prior to surgery with a maximum of 20 ounces. - No food from midnight until time of surgery and no smoking, or chewing tobacco (or any form of nicotine). No chewing gum, candy or mints. (0430am) Take only the following medications with a SIP of water on the morning of surgery: ____NONE DO NOT STOP ANY OF YOUR OTHER PRESCRIPTION MEDICATIONS PRIOR TO SURGERY EXCEPT THE FOLLOWING Hold all vitamins and supplements for 3 days per anesthesiologist. Medications to discontinue per physician NONE Date to take last dose___NONE Please no make-up, nail yi, hairspray, perfume, deodorant, or body powder the day of surgery.? No jewelry (including any body piercings) or valuables the day of surgery, leave them at home.? Please take a shower or bath the night before, or the morning of, surgery with an antibacterial soap.? Wear comfortable, loose fitting clothing.? - Jewelry must be removed prior to entering the operating room.? Rings and piercings that are not removed may be cut off. - The hospital will not accept responsibility for valuables.? - Please leave all valuables, including medications, at home the day of surgery. If you are going home after surgery, a licensed meals on wheels driver must drive you home.? - NO public transportation without another adult if you receive anesthesia. - We recommend that an adult stay with you for 24 hours following discharge. - We also recommend that you do not drive, make important decision, drink alcoholic beverages, or take any drugs that were not prescribed by your health care provider for at least 24 hours after your discharge time. Follow any additional instructions given to you from your surgeon. Telephone instructions given to ___Patient and asked if any additional questions and then verbalized understanding. Patient advised to call surgeon office or pre surgery nurse liaison [phone] if any additional questions.
[2025-04-09 10:37] VITALS: BP 163/87
[2025-04-23] VITALS (17 sets, daily range): BP systolic 109–158; BP diastolic 59–86; PULSE 82–104; RESP 14–20; TEMP 36.3–36.9; O2SAT 91–98
[2025-04-23] MEDS: LACTATED RINGERS 1,000 ML 30 ML IV CONT ×2 (06:45→11:04)
[2025-04-23] MEDS: VANCOMYCIN 2,000 MG/NS 500 ML 2,000 MG/500 ML BAG 250 MG IVPB (06:47)
--- NOTE | 2025-04-23 06:50 | WPDANESEPPF ---
Anes - Initial Pre Proc Eval Procedure: Operation Date: 04/23/25 07:30 Proposed Procedures p Insertion Inflatable Penile Prosthesis, Scrotoplasty, - Debi Soto MD s Circumcision - Debi Soto MD Date/Time: 04/23/25 06:50 Surgeon: Debi Soto MD Pre Op Diagnosis: ED, phimosis Patient Data Age: 69 Gender: M Height: 1.88 m Weight: 135.5 kg Last Vital Signs Temp 99.0 F 04/09/25 10:20 Pulse 94 04/09/25 10:20 Resp 16 04/09/25 10:20 BP 163/87 H 04/09/25 10:37 Pulse Ox 98 04/09/25 10:20 O2 Del Method Room Air 04/09/25 10:20 Allergies Allergy/AdvReac Type Severity Reaction Status Date / Time No Known Allergies Allergy Verified 04/09/25 10:19 Home Medications ?Medication ?Instructions ?Recorded ?Confirmed ?Type lisinopril 20 mg tablet 20 mg PO DAILY 12/11/24 04/09/25 History metformin 500 mg tablet 1,000 mg PO BID 12/11/24 04/09/25 History terazosin 5 mg capsule 5 mg PO HS 12/11/24 04/09/25 History Patient hx anesthesia problems: none Family hx anesthesia problems: none Results Review: All pre-operative results and documents have been reviewed as part of the pre-operative evaluation. [facility] Social History Social History Smoking packs per day: 0.25 Smoking cigarettes per day: 5.0 Years smoked: 8 Smoking pack-years: 2.00 Smoking status: Former smoker Tobacco type: cigarettes Second hand tobacco smoke exposure: No Smoking end date: 05/08/89 Alcohol intake: never Substance use: never Substance use type: former substance user and crack/cocaine Lack of Transportation: YES Lack of Food: Never True Current Housing: I Have Housing Concerned About Future Housing: No Difficulty Paying Gas/Electric Bills: No Difficulty Paying for Meds: No Currently Unemployed: No Education: High School Diploma/GED Difficulty w/ Childcare or Family Care: No Living arrangements: with family Spiritual care concerns: No Anes - Eval Final PreProcedure Day of Procedure 04/23/25 06:50 Patient weight: obese Lungs: normal air movement Airway: Mallampati scale class II and special considerations (Upper dentures. Missing many on the lower aspect. ) Neurological: alert and oriented Last oral intake: >/= 8 hours ASA classification: III Emergent: no Anesthetic plan: proceed Anesthesia type and monitoring: general ETT and standard monitoring Results Review: All pre-operative results and documents have been reviewed as part of the pre-operative evaluation. HTN, RICHARD but noncompliant w CPAP, ex smoker quit approx 1999. EKG NSR, pt can walk 1-2 fos, no cp or sob. Informed Consent: The patient's anesthetic plan and its attendant risks and benefits were discussed with the patient/family/POA. Questions were solicited and answers provided to the satisfaction of the patient/family/POA.
--- NOTE | 2025-04-23 07:25 | WPDHPUPDATE1 ---
History and Physical Update Update Date/Time: 04/23/25 07:25 History and Physical has been reviewed, including an updated exam of the patient. There are NO changes in the patient's condition. Risks, benefits, and alternatives have been discussed and questions answered. Patient agrees to proceed with procedure.
--- NOTE | 2025-04-23 08:30 | S_PTH ---
PATIENT: Owen Jennings LOC: [facility] U#:[id number] AGE/SX: 69/M ROOM: RE04/23/[address]: Debi Soto MD : [id number] BED: DIS: 04/24/2025 SPEC #: [id number] RECD: 04/23/25 13:32 STATUS: ISAMAR DIAZ #: [id number] BRUCE: 04/23/25 08:[address]: Debi Soto DEPT: [facility] Surgical RECD BY: Destinee Espinoza ENTERED: 04/23/25 13:33 SP TYPE: Surgical OTHR DR: EPIC PROFESSIONAL PHYSICIAN Tissues: A - Foreskin Procedures: Hematoxylin and Eosin Stain Gross and Microscopic Level 3
[2025-04-23] MEDS: BUPivacaine HCL 0.5% 10 ML AMP 20 ML INFILTRATE (09:04)
[2025-04-23] MEDS: LIDOCAINE 1% LOCAL INJ 10 ML VIAL 20 ML INFILTRATE (09:04)
--- NOTE | 2025-04-23 11:21 | P.OP_ITS ---
Procedure Note - Detailed Date of Procedure 04/23/25 Pre-op Diagnosis ED, phimosis Post-op Diagnosis Same (Erectile dysfunction, phimosis, Peyronie's disease, frenulectomy) Procedure Performed Insertion of three-piece penile implant, circumcision, frenuloplasty, correction of penile curvature Surgeon Debi Soto MD Anesthesia General Description of Procedure Informed consent obtained, patient taken to the operating room and given preoperative IV antibiotics with vancomycin and gentamicin. Additionally the patient has been taking oral levofloxacin and done a 3-day wash with Hibiclens. The patient was shaved. He was then prepped with Betadine scrub and paint followed by ChloraPrep. Sterile drapes were placed. We again prepped with ChloraPrep. A 16-Hebrew Del Cid catheter was inserted with return of clear urine. We then marked a 2cm circumferential area of skin to be removed before the circumcision. Skin was cut and deep dermal layer cauterized. There was a tight frenulum that was also incised. Phimotic skin was sent to pathology. We then performed a pharmacologically induced erection with dilute lidocaine. There was a symmetric erection with some dorsal left curvature noted. We elected to use our subcoronal incision for implant insertion we therefore degloved the penis ventrally to expose the proximal corporal bodies.. We dissected bluntly down to identify the corporal bodies taking great care not to injure the urethra. Stay sutures of 2-0 PDS were placed in the corporal body. We sharply opened the corpora. We then serially dilated up to a 12 Dash dilator. We then measured the corpora. Measurements were 14 cm proximally and 10cm distally. We irrigated and there was no injury. We then performed an identical procedure on the contralateral side. Measurements were 14 cm proximal, 10 cm distal. Of note there was more fibrosis on the patient's left side, we were able to dilate up to 12 Dash with serial dilation. Dilators were placed into the corpora bilaterally confirming that there was no crossover. We elected to place an AMS CX device 21cm +3 cm of rear tip extenders. We again irrigated the corporal bodies. We then inserted the prosthesis. We inflated using a surrogate reservoir and the device sat nicely with tips in the mid glans with approximately 40? of dorsal/left curvature. We then performed penile modeling for minute after placing rubber shots on tubing to the pump. We then inflated again with an excellent cosmetic result, there was reduction of curvature to be less than 15? in a direction. We then deflated. We then closed the pre-placed 2-0 PDS sutures. We again inflated using the surrogate reservoir with an excellent cosmetic result. We then made a right lower quadrant incision for approximately 2 cm. We bluntly dissected down to the external oblique fascia. The fascia was opened. We then the rectus muscle and created a space superiorly in the sub rectus. We emptied the bladder prior to our incision. We then irrigated copiously. We pre- placed 0 Vicryl sutures. We placed the reservoir in the sub rectus space. We fill it with 110 mL and there was no back pressure. We then left 100 mL in the reservoir. Our pre-placed external oblique fascia sutures were closed. We then made a subdartos pouch in the midline for the pump placement. It sat nicely in the inferior scrotum. The tubing was then brought up to the abdominal incision. Using the quick connect device, we connected the pump to the reservoir. We then cycled the device again and it functioned nicely. We then removed the stay sutures through the glans. We then again irrigated copiously. We closed the penile incision with 3-0 Vicryl sutures, followed by 3- 0 and and 4-0 interrupted chromic sutures circumferentially and over the frenulum. The right lower quadrant incision was closed with 3-0 Vicryl deep dermal layer and a 4-0 Monocryl subcuticular closure. Glue was placed over all incisions. A compressive dressing was placed. Patient was awakened and taken to recovery room in stable condition. Pathology Yes Complications No immediate complications Condition Stable Disposition PACU
--- NOTE | 2025-04-23 13:12 | ADMGEN ---
This patient, Owen Jennings, was admitted to [facility] Surg Room 313-01. Patient/family oriented to hospital policies and general routines including ID bracelet, bed and alarms, visiting hours, pain management, procedures, bathroom and other care routines, personal items, smoking policy, room service/diet, and visiting hours. Information on how to activate the Rapid Response Team has been discussed. Patient/Family are encouraged to report perceived risks to care and to ask questions if they do not understand what they are told or what they should do. Received from PACU
[2025-04-23] MEDS: HYDROcodone/acetaminophen (*CRX) 5-325 MG TABLET 1 TAB PO ×2 (13:55→16:58)
[2025-04-23 15:26] LABS: Hematocrit 42.8 % (42.0-52.0); Hemoglobin 13.5 g/dL (14.0-18.0); Mean Corpuscular HGB Conc 31.5 g/dl (32-36); Mean Corpuscular Hemoglobin 28.1 pg (26-34); Mean Corpuscular Volume 89.2 fl (80-100); Platelet Count Result 191 k/mm3 (150-375); Red Blood Count 4.80 M/mm3 (4.6-6.20); White Blood Count 8.8 K/mm3 (4.5-10.0)
[2025-04-23] MEDS: DOCUSATE SODIUM 100 MG CAPSULE PO (18:04)
[2025-04-23] MEDS: VANCOMYCIN HCL 1,000 MG in SODIUM CHLORIDE 0.9% IV 250 ML 250 MG IVPB (18:04)
[2025-04-23] MEDS: TERAZOSIN HCL 5 MG CAPSULE PO (20:47)
[2025-04-24 02:33] VITALS: BP 98/30; PULSE 97; RESP 18; TEMP 36.5; O2SAT 97
[2025-04-24] MEDS: VANCOMYCIN HCL 1,000 MG in SODIUM CHLORIDE 0.9% IV 250 ML 250 MG IVPB (05:30)
[2025-04-24] MEDS: MORPHINE SULFATE (*CRX) 4 MG/ML INJ 2 MG IV PUSH (05:41)
[2025-04-24 06:21] VITALS: BP 98/46; PULSE 93; RESP 18; TEMP 36.3; O2SAT 91
[2025-04-24] MEDS: GENTAMICIN 80MG/SOD CHL 50 ML 80 MG/50 ML BAG 100 MG IVPB (06:54)
[2025-04-24 06:55] LABS: Anion Gap 2 mmol/L (4-12); Blood Urea Nitrogen 26 mg/dL (9-20); Calcium 7.9 mg/dL (8.4-10.2); Carbon Dioxide 31 mmol/L (22-30); Chloride 105 mmol/L (98-107); Estimated CRCL calculation 61 ml/min; Estimated Glomerular Filt Rate 47; Glucose 147 mg/dL (65-110); Potassium 4.7 mmol/L (3.4-5.0); Sodium 138 mmol/L (137-145)
--- NOTE | 2025-04-24 10:00 | PC.NURSE ---
Pt in bed. Attempted to get up but refused stating to PCT, I will not get up right now. Oxygen level at 83% on RA. O2 put on pt at 3L per NC. Sats improved to 93%. Del Cid removed per Urology RN.
[2025-04-24 10:33] VITALS: BP 113/47; PULSE 101; RESP 16; TEMP 36.4; O2SAT 82
[2025-04-24] MEDS: DOCUSATE SODIUM 100 MG CAPSULE PO (11:24)
[2025-04-24] MEDS: ENOXAPARIN 40 MG/0.4 ML SYRINGE SUB-Q (11:25)
--- NOTE | 2025-04-24 12:57 | PC.NURSE ---
Pt up in chair at this time. Voided in restroom per cargo checker. Placed on RA with saturation recheck 97%.
--- NOTE | 2025-04-24 13:02 | P.DS_ITS ---
DS: Admitting Diagnosis Discharge Date 04/24/2025 Admitting Diagnosis Erectile dysfunction, phimosis, Peyronie's disease Procedure Performed Insertion of three-piece penile implant, circumcision, frenuloplasty, correction of penile curvature DS: Discharge Diagnosis Discharge Diagnosis Plan Erectile dysfunction, phimosis, Peyronie's disease, DS: Summary Hospital Course Hospital Course: POD 1 Insertion of three-piece penile implant, circumcision, frenuloplasty, correction of penile curvature no complications. Status at Discharge Overall status at discharge: patient is back to baseline Time Spent with Patient Time attestation: Total time spent providing and/or coordinating discharge services: Exam Const: General: comfortable and no acute distress HENMT: Face/Nose/Sinus: Normal nares present Eyes: General: appearance normal, both eyes and all related structures Pupils: Equal, round and reactive pupils present Resp: Effort & Inspection: normal respiratory effort : Other: minimal swelling. small amount of sanguinous drainage DS: Data Data Completed and Pending Completed studies during hospitalization: Pending at discharge 04/23/25 08:30 Surgical [PTH] Routine Labs on day of discharge: Labs from last 24 hours 04/24/25 04/23/25 06:08 15:05 WBC 8.8 RBC 4.80 Hgb 13.5 L Hct 42.8 MCV 89.2 MCH 28.1 MCHC 31.5 L RDW 14.3 Plt Count 191 MPV 9.9 Sodium 138 Potassium 4.7 Chloride 105 Carbon Dioxide 31 H Anion Gap 2 L BUN 26 H D Creatinine 1.50 H Estim Creat Clear Calc 61 Estimated GFR 47 L Glucose 147 H Calcium 7.9 L Discharge Plan Discharge Patient Disposition: Home Discharge Instructions: discharge packet given to patient Patient Language: Burkinan Stand Alone Forms: General Discharge Instructions Discharge Medications: Continued metformin 500 mg tablet 1,000 mg PO BID lisinopril 20 mg tablet 20 mg PO DAILY terazosin 5 mg capsule 5 mg PO HS
--- NOTE | 2025-04-24 14:29 | WPDANESPN ---
Anes - Prog Note Post-Op Date/Time: 04/24/25 14:29 Cardiovascular status: normal Respiratory status: normal Airway patency: baseline Mental status: baseline Vital Signs: Last Vital Signs Temp 36.4 C 04/24/25 10:33 Pulse 101 H 04/24/25 10:33 Resp 16 04/24/25 10:33 BP 113/47 L 04/24/25 10:33 Pulse Ox 82 L 04/24/25 10:33 O2 Del Method Room Air 04/24/25 08:00 O2 Flow Rate 1 04/23/25 20:47 Pain Score (VAS): 2 I/O: Intake & Output 04/23/25 04/24/25 04/24/25 23:59 07:59 15:59 Intake Total 490 200 120 Output Total 725 250 Balance -235 -50 120 Laboratory Tests 04/23/25 15:05 04/24/25 06:08 04/23/25 04/24/25 15:05 06:08 WBC 8.8 RBC 4.80 Hgb 13.5 L Hct 42.8 MCV 89.2 MCH 28.1 MCHC 31.5 L RDW 14.3 Plt Count 191 MPV 9.9 Sodium 138 Potassium 4.7 Chloride 105 Carbon Dioxide 31 H Anion Gap 2 L BUN 26 H D Creatinine 1.50 H Estim Creat Clear Calc 61 Estimated GFR 47 L Glucose 147 H Calcium 7.9 L Patient Feedback: Patient satisfied with anesthetic care.
== END 2025-04-24 15:08 | disposition home or self-care (01) ==
LOC: ANHSURGERY 06:19 → ANH3MEDSUR 12:56
PROVIDERS: Visit Provider Urology
PROC: (CPT 54360; principal; 2025-04-23 07:30)
PROC: (CPT 54161; 2025-04-23 07:30)
DX: N52.9 Male erectile dysfunction, unspecified (principal); N47.1 Phimosis; N48.6 Induration penis plastica; Z87.891 Personal history of nicotine dependence; E66.9 Obesity, unspecified; Z68.37 Body mass index [BMI] 37.0-37.9, adult
CPT/HCPCS: 54360; 54405; 36415; 80048; 82948; 85027; 88304; A9270; C1813; J0690; J1100; J1580; J1650; J2003; J2270; J2405; J2704; J3010; J3373; J7030; J7050; J7120